=== PATIENT | female | born 1935 | race Caucasian/White ===

== ENCOUNTER → 2020-06-01 09:41 | Outpatient (BNVA) | payer MEDICARE, MEDICAID, SELFPAY | PROVIDERS: Family Provider Family Medicine; PCP Family Medicine; Visit Provider Family Medicine | DX: I10 Essential (primary) hypertension (principal); M54.5 Low back pain; E11.9 Type 2 diabetes mellitus without complications | CPT/HCPCS: 80053; 80061; 83036; 85025 ==

== ENCOUNTER → 2021-01-11 17:15 | Outpatient (BNVA) | payer MEDICARE, MEDICAID, SELFPAY | PROVIDERS: Family Provider Family Medicine; PCP Family Medicine; Visit Provider Family Medicine | DX: E11.9 Type 2 diabetes mellitus without complications (principal); M54.5 Low back pain; M10.9 Gout, unspecified; I10 Essential (primary) hypertension | CPT/HCPCS: 80053; 83036 ==

== ENCOUNTER → 2021-01-22 12:07 | Outpatient (BNVA) | payer MEDICARE, MEDICAID, SELFPAY | PROVIDERS: Family Provider Family Medicine; PCP Family Medicine; Referring Provider Family Medicine; Visit Provider Family Medicine | DX: I10 Essential (primary) hypertension (principal) | CPT/HCPCS: 80053 ==

== ENCOUNTER → 2021-08-03 15:08 | Outpatient (BNVA) | payer MEDICARE, MEDICAID, SELFPAY | PROVIDERS: Family Provider Family Medicine; PCP Family Medicine; Visit Provider Family Medicine | DX: I10 Essential (primary) hypertension; E11.9 Type 2 diabetes mellitus without complications; E78.5 Hyperlipidemia, unspecified; M17.11 Unilateral primary osteoarthritis, right knee; M1A.09X0 Idiopathic chronic gout, multiple sites, without tophus (tophi); I48.0 Paroxysmal atrial fibrillation; L82.1 Other seborrheic keratosis; E78.2 Mixed hyperlipidemia; L72.0 Epidermal cyst | CPT/HCPCS: 80053; 80061; 83036 ==

== ENCOUNTER → 2021-09-03 11:14 | Outpatient (BNVA) | payer MEDICARE, MEDICAID, SELFPAY | PROVIDERS: Family Provider Family Medicine; PCP Family Medicine; Visit Provider Nurse Practitioner Family | DX: M17.11 Unilateral primary osteoarthritis, right knee (principal); M76.41 Tibial collateral bursitis [Pellegrini-Stieda], right leg | CPT/HCPCS: 73562 ==

== ENCOUNTER → 2021-10-12 09:37 | Outpatient (BNVA) | payer MEDICARE, MEDICAID, SELFPAY | PROVIDERS: Family Provider Family Medicine; PCP Family Medicine; Visit Provider Nurse Practitioner Family | DX: M16.11 Unilateral primary osteoarthritis, right hip (principal) | CPT/HCPCS: 73502 ==

== ENCOUNTER 2021-10-21 13:04 | Emergency (ER) | payer MEDICARE, MEDICAID, SELFPAY ==
[2021-10-21 13:14] VITALS: BP 154/81; PULSE 64; RESP 18; TEMP 37.2; O2SAT 96; BMI 30.3
--- NOTE | 2021-10-21 13:30 | CTR_ITS ---
PROCEDURE INFORMATION: Exam: CT Lumbar Spine Without Contrast Exam date and time: 10/21/2021 1:46 PM Age: 86 years old Clinical indication: Low back pain; Patient HX: C/O worsening chronic low back/rle pain; Additional info: Worsening back pain TECHNIQUE: Imaging protocol: Computed tomography images of the lumbar spine without contrast. Radiation optimization: All CT scans at this facility use at least one of these dose optimization techniques: automated exposure control; mA and/or kV adjustment per patient size (includes targeted exams where dose is matched to clinical indication); or iterative reconstruction. COMPARISON: CR XR hip RT 2-3V wo/w pel* [id number] 10/12/2021 9:53 AM RADIATION DOSE METRICS: Total DLP (mGy-cm): 2343.27 FINDINGS: Vertebrae: Levoscoliosis. 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 Moderate to severe multilevel spine degenerative changes including degenerative disc disease, spondylosis and facet degenerative changes. Discs/Spinal canal/Neural foramina: Severe L3-L4, L4-L5 and L5-S1 central spinal stenosis. Soft tissues: Unremarkable. CT/CT lumbar spine wo con* [id number] IMPRESSION: 1. Levoscoliosis. 2. 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 3. Severe L3-L4, L4-L5 and L5-S1 central spinal stenosis. 4. Moderate to severe multilevel spine degenerative changes including degenerative disc disease, spondylosis and facet degenerative changes.
--- NOTE | 2021-10-21 13:31 | W.ED.EXTPRO ---
HPI - Extremity Problem General: Chief complaint: Extremity Problem,Nontraumatic Stated complaint: Right leg/hip pain Time Seen by Provider: 10/21/21 13:22 Source: patient Mode of arrival: ambulatory Limitations: no limitations History of Present Illness: 86-year-old female presents to the ER today for right sided hip and low back pain. Patient reports this is a chronic issue however has continued to worsen over the last 1 month. Patient denies any injury that made it worse. She reports she saw her primary care last week and had a bursitis injection. Patient reports since then the pain has worsened and not improved at all. Patient reports pain is more in the posterior buttock/hip region. Patient denies any pain radiating down her leg. Patient reports in the past she was told she had some degeneration in her low back. Patient reports she takes gabapentin with no improvement. Patient also takes tramadol. Patient reports she is unable to sleep due to the pain over the last week. Patient denies any numbness or tingling. Denies any loss of bowel or bladder control. Review of Systems General: Reports: 10 or more systems reviewed and unremarkable except in HPI and below PFSH ED PFSH: Medical History A-fib Bilateral chronic knee pain DDD (degenerative disc disease), lumbar Enrolled in chronic care management Gout Hyperlipidemia Hypertension Lumbar back pain Osteoporosis Restless leg syndrome Type 2 diabetes mellitus Surgical History H/O: hysterectomy S/P cholecystectomy S/P triple vessel bypass Family History Mother , uterine cancer Cancer CAD (coronary artery disease) Stroke Brother CAD (coronary artery disease) Daughter , lung cancer Cancer Sister Cancer breast and uterine cancer Social History Smoking and tobacco status: never smoked Alcohol intake: never Current occupational status: retired History of recent travel: No Current gender identity: Female Female Reproductive History: Para: 7 Spontaneous abortions: No Physical Exam Const: COMMON NORMALS: average body habitus, patient oriented x3, no limitations, healthy appearing and alert Neck/C-Spine: COMMON NORMALS: full ROM and no lymphadenopathy Resp: COMMON NORMALS: normal respiratory effort, No retractions and clear to auscultation bilaterally AUSCULTATION: clear to auscultation bilaterally Cardio: COMMON NORMALS: regular rate and regular rhythm RATE: regular rate RHYTHM: regular rhythm GI: COMMON NORMALS: Normal to inspection, nondistended, normoactive bowel sounds present, Soft to palpation and non-tender PALPATION: Yes Soft to palpation Back/Pelvis: OTHER: Patient has tenderness over the spinous processes of L3-5. Patient also has pain to palpation over the SI joint. No tenderness is noted over the right trochanteric bursa's. Extremity: OTHER: See back exam. No tenderness is noted over the right trochanteric bursa's at this time. Neuro: COMMON NORMALS: patient oriented x3 SENSORIUM/ORIENTATION: Yes alert Psych: COMMON NORMALS: mental status grossly normal, Normal thought process present, cooperative and normal affect THOUGHT PROCESS: Normal thought process present Skin: COMMON NORMALS: no rashes or lesions noted GENERAL SKIN EXAM: no rashes or lesions noted Course ED course: 86-year-old female presents to the ER today for right hip and low back pain is chronic but worsening. Patient had an injection of the right hip about 1 week ago for bursitis. Patient reports pain has worsened since that time. Patient reports pain is more so in the low back and buttock going down into her leg. She denies any loss of bowel or bladder control at this time. Patient is taking gabapentin and tramadol with minimal improvement. Patient reports she is unable to sleep at night due to the pain. Patient does not know when her last MRI of the low back was done. We will get a CT of the low back L-spine at this time. Discussed with patient that she may need to follow-up for MRI or discuss other options with her PCP. We will try to better manage her pain at this time. Vital Signs: Vital signs: Vital Signs Temperature 97.8 F 10/21/21 13:57 Pulse Rate 88 10/21/21 15:04 Respiratory Rate 16 10/21/21 15:04 Blood Pressure 144/56 10/21/21 15:04 Pulse Oximetry 96 10/21/21 15:04 MDM - Extremity (Nontraumatic) Medical Decision Making 86-year-old female presents to the ER today for right hip and low back pain is chronic but worsening. Patient had an injection of the right hip about 1 week ago for bursitis. Patient reports pain has worsened since that time. Patient reports pain is more so in the low back and buttock going down into her leg. She denies any loss of bowel or bladder control at this time. Patient is taking gabapentin and tramadol with minimal improvement. Patient reports she is unable to sleep at night due to the pain. She denies any neurological deficits. Patient does not know when her last MRI of the low back was done. CT of the L-spine done in the ER indicates some spinal stenosis of the lower lumbar region in addition to some significant spurring and degenerative changes noted. I discussed findings with patient. I recommend she follow-up with her PCP for additional imaging and to discuss treatment plan. At this time we will try a steroid pack and patient can continue her home pain medication and gabapentin. We will avoid any muscle relaxers or medications that would make patient drowsy given her age and fall risk. Patient should follow-up with PCP this week. Return to the ER with new or worsening symptoms. Patient verbalized understanding and is in agreement with the treatment plan. Lab Data Radiology Impressions Lumbar Spine CT 10/21/21 13:30 IMPRESSION: 1. Levoscoliosis. 2. 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 3. Severe L3-L4, L4-L5 and L5-S1 central spinal stenosis. 4. Moderate to severe multilevel spine degenerative changes including degenerative disc disease, spondylosis and facet degenerative changes. Critical Care Time Critical Care Time: Critical Care Time: No Discharge Plan Discharge Patient Disposition: Home Clinical Impression: Acute exacerbation of chronic low back pain Condition: Stable Prescriptions: New Medrol (Cam) 4 mg tablets,dose pack See Rx Instructions .ROUTE .COMPLEX Qty: 21 0RF Rx Instructions: orally per package directions No Action Eliquis 5 mg tablet 5 mg PO BID 0RF amiodarone 200 mg tablet 200 mg PO DAILY 0RF allopurinol 300 mg tablet See Rx Instructions .ROUTE .COMPLEX 90 Days Qty: 45 1RF Dose Instruction: TAKE 1/2 TABLET (150MG) BY MOUTH DAILY Rx Instructions: TAKE 1/2 TABLET (150MG) BY MOUTH DAILY carvedilol 6.25 mg tablet 6.25 mg PO BID 90 Days Qty: 180 1RF gabapentin 400 mg capsule 400 mg PO TID 30 Days Qty: 90 5RF glipizide 5 mg tablet extended release 24hr See Rx Instructions .ROUTE .COMPLEX Qty: 90 1RF Dose Instruction: TAKE 1 TABLET BY MOUTH DAILY Rx Instructions: TAKE 1 TABLET BY MOUTH DAILY lovastatin 20 mg tablet See Rx Instructions .ROUTE .COMPLEX 90 Days Qty: 90 1RF Dose Instruction: TAKE 1 TABLET BY MOUTH DAILY Rx Instructions: TAKE 1 TABLET BY MOUTH DAILY meloxicam 15 mg tablet See Rx Instructions .ROUTE .COMPLEX Qty: 90 1RF Dose Instruction: TAKE 1 TABLET BY MOUTH DAILY WITH FOOD Rx Instructions: TAKE 1 TABLET BY MOUTH DAILY WITH FOOD aspirin [Adult Aspirin Regimen] 81 mg tablet,delayed release (DR/EC) 81 mg PO DAILY 0RF folic acid 800 mcg tablet 0.8 mg PO DAILY 0RF vitamin B complex [B Complex-Vitamin B12] Tablet 1 tab PO DAILY 0RF omega-3 fatty acids [Fish Oil Concentrate] 1,000 mg capsule 1,000 mg PO BID 0RF Entresto 24-26 mg tablet 1 tab PO BID 0RF tramadol 50 mg tablet 50 mg PO BID PRN (Reason: pain) 7 Days Qty: 14 0RF Discharge Orders: Discharge ED (Routine); Ordered 10/21/21 Ordered By: Pily Coles Referrals: Denise Parnell MD [Primary Care Provider] - Discharge Diet: Usual diet Discharge Activity: Resume usual activity Patient Instructions: Opioid Safety Activity Restrictions/Additional Instructions: Take Medrol Dosepak as discussed. Continue home medications and speak with PCP regarding increasing nose for pain. Follow-up with PCP in 5 to 7 days to discuss further imaging versus referral. Return to the ER with any new or worsening symptoms. Coding Level of Care Code ED Business Intelligence Engineer for Katlin Fwric Exam Detailed
[2021-10-21 13:57] VITALS: BP 144/56; PULSE 66; RESP 16; TEMP 36.6; O2SAT 97
[2021-10-21 15:04] VITALS: BP 144/56; PULSE 88; RESP 16; O2SAT 96
== END 2021-10-21 15:09 | disposition home or self-care (01) ==
PROVIDERS: Emergency Provider Physician Assistant; PCP Family Medicine
DX: G89.29 Other chronic pain (principal); M54.50 Low back pain, unspecified; M48.061 Spinal stenosis, lumbar region without neurogenic claudication
CPT/HCPCS: 72131; 99282

== ENCOUNTER → 2022-01-10 10:47 | Outpatient (BNVA) | payer MEDICARE, MEDICAID, SELFPAY | PROVIDERS: PCP Family Medicine; Visit Provider Emergency Medicine | DX: E11.40 Type 2 diabetes mellitus with diabetic neuropathy, unspecified (principal) | CPT/HCPCS: 82962; 83036 ==

== ENCOUNTER → 2022-03-19 09:15 | Outpatient (BNVA) | payer MEDICARE, MEDICAID, SELFPAY | PROVIDERS: PCP Family Medicine; Visit Provider Family Medicine | DX: I10 Essential (primary) hypertension (principal); E11.9 Type 2 diabetes mellitus without complications; M10.9 Gout, unspecified | CPT/HCPCS: 80053; 83036 ==

== ENCOUNTER → 2022-08-27 08:55 | Outpatient (BNVA) | payer MEDICARE, MEDICAID, SELFPAY | PROVIDERS: PCP Family Medicine; Visit Provider Family Medicine | DX: I10 Essential (primary) hypertension (principal); E78.2 Mixed hyperlipidemia; E11.9 Type 2 diabetes mellitus without complications | CPT/HCPCS: 80053; 80061; 83036 ==

== ENCOUNTER → 2023-04-12 13:41 | Outpatient (BNVA) | payer MEDICARE, MEDICAID, SELFPAY | PROVIDERS: PCP Family Medicine; Visit Provider Nurse Practitioner Family | DX: Z20.822 Contact with and (suspected) exposure to COVID-19 (principal); U07.1 COVID-19 | CPT/HCPCS: 87426 ==

== ENCOUNTER → 2023-05-13 09:09 | Outpatient (BNVA) | payer MEDICARE, MEDICAID, SELFPAY | PROVIDERS: PCP Family Medicine; Visit Provider Family Medicine | DX: E04.9 Nontoxic goiter, unspecified (principal); I10 Essential (primary) hypertension; E11.40 Type 2 diabetes mellitus with diabetic neuropathy, unspecified; E11.9 Type 2 diabetes mellitus without complications; E78.5 Hyperlipidemia, unspecified; M10.9 Gout, unspecified; Z23 Encounter for immunization; R53.1 Weakness; M16.11 Unilateral primary osteoarthritis, right hip; Z74.09 Other reduced mobility; Z78.9 Other specified health status; R54 Age-related physical debility; R00.1 Bradycardia, unspecified; I48.0 Paroxysmal atrial fibrillation; E11.42 Type 2 diabetes mellitus with diabetic polyneuropathy; M1A.09X0 Idiopathic chronic gout, multiple sites, without tophus (tophi); E78.2 Mixed hyperlipidemia | CPT/HCPCS: 80053; 80061; 83036; 84439; 84443; 84481; 84550; 85025 ==

== ENCOUNTER → 2023-08-12 11:09 | Outpatient (BNVA) | payer MEDICARE, MEDICAID, SELFPAY | PROVIDERS: PCP Family Medicine; Referring Provider Family Medicine; Visit Provider Family Medicine | DX: N39.0 Urinary tract infection, site not specified (principal) | CPT/HCPCS: 81000 ==

== ENCOUNTER → 2024-01-26 12:41 | Outpatient (BNVA) | payer MEDICARE, MEDICAID, SELFPAY | PROVIDERS: PCP Family Medicine; Visit Provider Family Medicine | DX: E11.9 Type 2 diabetes mellitus without complications (principal); I10 Essential (primary) hypertension | CPT/HCPCS: 80048; 83036; 83880 ==

== ENCOUNTER → 2024-04-29 09:27 | Outpatient (BNVA) | payer MEDICARE, MEDICAID, SELFPAY | PROVIDERS: PCP Family Medicine; Visit Provider Nurse Practitioner | DX: S90.31XA Contusion of right foot, initial encounter (principal); X58.XXXA Exposure to other specified factors, initial encounter; M19.90 Unspecified osteoarthritis, unspecified site; M19.071 Primary osteoarthritis, right ankle and foot | CPT/HCPCS: 73630 ==

== ENCOUNTER → 2024-09-13 09:06 | Outpatient (BNVA) | payer MEDICARE, MEDICAID, SELFPAY | PROVIDERS: PCP Family Medicine; Visit Provider Family Medicine | DX: E11.9 Type 2 diabetes mellitus without complications (principal); E04.9 Nontoxic goiter, unspecified; I50.9 Heart failure, unspecified; E78.2 Mixed hyperlipidemia | CPT/HCPCS: 80053; 80061; 83036; 83880; 84439; 84443; 84481; 85025 ==

== ENCOUNTER 2024-12-29 12:43 | Inpatient (IN) | payer MEDICARE, MEDICAID, SELFPAY ==
[2024-12-29] VITALS (17 sets, daily range): BP systolic 82–107; BP diastolic 44–66; PULSE 78–94; RESP 15–22; TEMP 36.4–36.8; O2SAT 90–100; BMI 27.1
--- NOTE | 2024-12-29 12:58 | XR_ITS ---
WS: [id number] Portable AP upright chest, 12/29/2024 Clinical Data: fall Comparison: None. Findings: No nodules or masses are seen. The heart is enlarged. There is a moderate right pleural effusion. The pulmonary vascularity is not increased. No pneumonia or pneumothorax is seen. Midline sternotomy sutures are present. The aortic arch shows calcification. There are probable mariah calcifications in the right axilla. Monitor leads are on the chest wall. XR/XR chest 1V portable [id number] Impression: 1. Cardiomegaly and moderate right pleural effusion. 2. Atherosclerosis.
--- NOTE | 2024-12-29 12:58 | XR_ITS ---
WS: [email or web address] Right shoulder, 3 views, 12/29/2024 Clinical Data: fall Comparison: None. Findings: No fractures or dislocations are seen. There is osteoarthritis of the right AC joint with narrowing, sclerosis and bony overgrowth. There is severe osteoarthritis of the right glenohumeral joint with abundant calcifications over the humeral head and within the glenoid fossa. The adjacent right clavicle, right scapula and ribs are normal. The soft tissues are unremarkable. There are node calcifications in the right axilla. There is a patchy opacity in the right lower lobe. XR/XR shoulder RT min 2V* [id number] Impression: 1. Negative for fracture or dislocation. 2. 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
--- NOTE | 2024-12-29 12:58 | XR_ITS ---
WS: [email or web address] Right hip, 2 views, AP pelvis, 12/29/2024 Clinical Data: fall Comparison: Right hip, 10/12/2021 Findings: No fractures or dislocations are seen. The right hip shows severe osteoarthritis with narrowing, sclerosis, cyst formation, and erosion of the acetabular fossa and head of the right femur. The left hip shows moderate osteoarthritis. The soft tissues are not remarkable. The adjacent pelvis is normal. There is vascular calcification. There is a fecal impaction. Monitor leads are on the abdominal wall. There is osteoarthritis of the lower lumbar vertebral bodies. XR/XR hip RT 2-3V wo/w pel* [id number] Impression: 1. Negative for right hip fracture. 2. Severe osteoarthritis of the right hip. 3. Moderate osteoarthritis of the left hip.
--- NOTE | 2024-12-29 12:59 | W.ED.EXTPRO ---
HPI - Extremity Problem General: Chief complaint: Extremity Injury, Lower Stated complaint: FALL , RIGHT HIP PAIN, LOW BP Time Seen by Provider: 12/29/24 12:52 History of Present Illness: 89-year-old female presents following a mechanical fall. Patient reports that she was reaching into get a frozen microwave dinner lost her balance and fell. Patient complains of right hip pain. Patient received a liter bolus and route via EMS. She also complains of some right shoulder pain. Associated symptoms: Deny chest pain or fever(s) Related Data Home Medications ?Medication ?Instructions ?Recorded ?Confirmed aspirin 81 mg tablet,delayed 81 mg PO DAILY 12/06/19 12/29/24 release (Adult Aspirin Regimen) omega-3 fatty acids 1,000 mg 1,000 mg PO BID 12/06/19 09/13/24 capsule (Fish Oil Concentrate) vitamin B complex (B 1 tab PO DAILY 12/06/19 09/13/24 Complex-Vitamin B12 tablet) sacubitril 24 mg-valsartan 26 mg 1 tab PO BID 01/21/20 09/13/24 tablet (Entresto) apixaban 5 mg tablet (Eliquis) 5 mg PO BID 07/02/20 12/29/24 amiodarone 200 mg tablet 200 mg PO DAILY 07/10/20 12/29/24 nitroglycerin 0.4 mg sublingual 0.4 mg sublingual Q5M PRN 02/07/23 09/13/24 tablet (Nitrostat) atorvastatin 20 mg tablet 20 mg PO DAILY 12/29/24 12/29/24 carvedilol 6.25 mg tablet 6.25 mg PO BID 12/29/24 12/29/24 gabapentin 800 mg tablet See Rx Instructions .Route .COMPLEX 12/29/24 12/29/24 glipizide 2.5 mg tablet, extended 2.5 mg PO DAILY 12/29/24 12/29/24 release 24 hr lovastatin 20 mg tablet 20 mg PO DAILY 12/29/24 12/29/24 meloxicam 15 mg tablet 15 mg PO DAILY 12/29/24 12/29/24 Previous Rx's ?Medication ?Instructions ?Recorded miscellaneous medical supply 1 ea miscellaneous ONCE #1 ea 04/10/22 miscellaneous medical supply See Rx Instructions miscellaneous 09/08/23 .COMPLEX #1 ea inhalational spacing device #1 ea 09/29/23 (BreatheRite Valved MDI Chamber spacer) blood sugar diagnostic (Blood #200 ea 03/18/24 Glucose Test strips) blood-glucose meter #1 ea 03/18/24 lancets #200 ea 03/18/24 diaper,brief,adult,disposable #240 ea 05/04/24 (Depend Underwear For Women Small-Medium) albuterol sulfate 90 mcg/actuation See Rx Instructions .Route 06/21/24 aerosol inhaler (Ventolin HFA) .COMPLEX #18 grams furosemide 20 mg tablet 20 mg PO DAILY for extra fluid on 09/13/24 body 90 days #90 tabs miscellaneous medical supply See Rx Instructions miscellaneous 09/13/24 .COMPLEX #2 ea potassium chloride 8 mEq 8 meq PO DAILY 90 days #90 caps 09/13/24 capsule,extended release Allergies Allergy/AdvReac Type Severity Reaction Status Date / Time metformin Allergy diarrhea Verified 09/13/24 08:30 Penicillins Allergy hives Verified 09/13/24 08:30 Review of Systems Const: Denies: fever(s) or chills Card: Denies: chest pain or palpitations Resp: Denies: dyspnea or productive cough Musc: Reports: other (Please see HPI) PFSH ED PFSH: Medical History Pressure ulcer Weakness A-fib Enrolled in chronic care management Osteoporosis Restless leg syndrome Hyperlipidemia DDD (degenerative disc disease), lumbar Bilateral chronic knee pain Lumbar back pain Gout Type 2 diabetes mellitus Hypertension Surgical History S/P triple vessel bypass S/P cholecystectomy H/O: hysterectomy Family History Mother , uterine cancer Cancer CAD (coronary artery disease) Stroke Brother CAD (coronary artery disease) Daughter , lung cancer Cancer Sister Cancer breast and uterine cancer Social History Smoking and tobacco/nicotine status: never used tobacco/nicotine Alcohol intake: never Substance/Drug Use: never Current occupational status: retired Do you think of yourself as: Straight/Heterosexual Current gender identity: Female Female Reproductive History: Para: 7 Spontaneous abortions: No Physical Exam Const: COMMON NORMALS: no acute distress, patient oriented x3 and alert Resp: COMMON NORMALS: normal respiratory effort and clear to auscultation bilaterally AUSCULTATION: clear to auscultation bilaterally Cardio: COMMON NORMALS: regular rate and regular rhythm RATE: regular rate RHYTHM: regular rhythm Extremity: NARRATIVE EXTREMITY EXAM: Mild tenderness right hip with some mild shortening and external rotation of the right lower leg, mild tenderness right shoulder Neuro: COMMON NORMALS: patient oriented x3 SENSORIUM/ORIENTATION: Yes alert Course Vital Signs: Vital signs: Vital Signs Pulse Rate 78 12/29/24 13:37 Respiratory Rate 16 12/29/24 13:37 Blood Pressure 100/48 12/29/24 13:37 Pulse Oximetry 95 12/29/24 12:55 MDM - Extremity (Nontraumatic) Medical Decision Making Patient's diagnostic studies were ordered reviewed and show significant anemia hemoglobin of 5.3. Patient does admit to having chronic black stool and she is on Eliquis. She reports has been having black stool for at least a year and increasing weakness over the last few months. Patient's x-ray showed no acute findings. Patient to be admitted for further evaluation and blood transfusion to Dr. Dillon. Patient was stable upon admission. Lab Data 12/29/24 13:06 12/29/24 13:06 Radiology Impressions Chest X-Ray 12/29/24 12:58 Impression: 1. Cardiomegaly and moderate right pleural effusion. 2. Atherosclerosis. Hip/Pelvis X-Ray 12/29/24 12:58 Impression: 1. Negative for right hip fracture. 2. Severe osteoarthritis of the right hip. 3. Moderate osteoarthritis of the left hip. Shoulder X-Ray 12/29/24 12:58 Impression: 1. Negative for fracture or dislocation. 2. 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 Laboratory Results WBC 4.04 10^3/uL (3.29-11.43) 12/29/24 13:06 RBC 2.03 10^6/uL (3.85-5.65) L 12/29/24 13:06 Hgb 5.30 g/dL (11.27-16.99) L* 12/29/24 13:06 Hct 17.7 % (36-47) L* 12/29/24 13:06 MCV 87.2 fl (85-98) 12/29/24 13:06 MCH 26.1 pg (27-33) L 12/29/24 13:06 MCHC 29.9 g/dL (30-55) L 12/29/24 13:06 RDW 21.2 % (12.1-15.1) H 12/29/24 13:06 Plt Count 286 10^3/cmm (157-399) 12/29/24 13:06 MPV 8.9 fL (7.4-10.4) 12/29/24 13:06 Neut % (Auto) 67.6 % 12/29/24 13:06 Lymph % (Auto) 16.1 % 12/29/24 13:06 [place] % (Auto) 11.4 % 12/29/24 13:06 Eos % (Auto) 3.7 % 12/29/24 13:06 Baso % (Auto) 0.5 % 12/29/24 13:06 Neut # (Auto) 2.73 10^3/uL (1.8-7.7) 12/29/24 13:06 Lymph # (Auto) 0.7 10^3/uL (0.8-4.8) L 12/29/24 13:06 [place] # (Auto) 0.5 10^3/uL (0.2-0.9) 12/29/24 13:06 Eos # (Auto) 0.2 10^3/uL (0.0-0.8) 12/29/24 13:06 Baso # (Auto) 0.0 10^3/uL (0.0-0.1) 12/29/24 13:06 Nucleated RBC % (auto) 0 % 12/29/24 13:06 Nucleated RBCs # 0.0 /100WBC 12/29/24 13:06 Sodium 136 mmol/L (136-145) 12/29/24 13:06 Potassium 5.3 mmol/L (3.5-5.1) H 12/29/24 13:06 Chloride 101 mmol/L (98-107) 12/29/24 13:06 Carbon Dioxide 26 mmol/L (22-29) 12/29/24 13:06 Anion Gap 14.3 (5-19) 12/29/24 13:06 BUN 57 mg/dL (8-23) H 12/29/24 13:06 Creatinine 1.7 mg/dL (0.5-0.9) H 12/29/24 13:06 GFR Calculation Not Reportable 12/29/24 13:06 Glucose 109 mg/dL (65-115) 12/29/24 13:06 Calculated Osmolality 298 mOsm/kg (285-295) H 12/29/24 13:06 Calcium 8.1 mg/dL (8.5-10.5) L 12/29/24 13:06 Total Bilirubin 0.7 mg/dL (0.15-1.2) 12/29/24 13:06 AST 8 U/L (0-32) 12/29/24 13:06 ALT 9 U/L (0-33) 12/29/24 13:06 Alkaline Phosphatase 93 U/L (35-105) 12/29/24 13:06 Troponin T Baseline 29 ng/L (0-10) H 12/29/24 13:06 Total Protein 5.7 g/dL (6.6-8.7) L 12/29/24 13:06 Albumin 3.3 g/dL (3.5-5.2) L 12/29/24 13:06 Globulin 2.4 g/dL (1.3-4.6) 12/29/24 13:06 Amorphous Sediment Not Reportable 12/29/24 13:26 All radiology interpretation(s) finalized by discharge Discharge Plan Discharge Patient Disposition: Admitted As Inpatient Clinical Impression: Anemia, Weakness generalized, Fall Condition: Stable Coding Level of Care Code ED Warp Dresser for Katlin Mace
--- NOTE | 2024-12-29 13:05 | ECG_ITS ---
[employer] [facility] Test Date: 2024-12-29 Pat Name: Lorie Velásquez Department: Room: Gender: Female [employer] Etl Developer: : 1935 Requested By: Aleksandr Rowan Order Number: [id number] Elsie MD: Alana Dave M.D. Measurements Intervals [place] Rate: 83 P: 0 OR: 0 QRS: -16 QRSD: 101 T: 190 QT: 375 QTc: 441 Interpretive Statements ATRIAL FIBRILLATION LOW QRS VOLTAGE [QRS DEFLECTION < 0.5/1.0 mV IN LIMB/CHEST LEADS] PATTERN CONSISTENT WITH PULMONARY DISEASE SEPTAL MYOCARDIAL INFARCTION , PROBABLY OLD [40+ ms Q WAVE IN V1/V2] No previous ECG available for comparison Electronically Signed On 12-29-2024 21:41:33 CDT by Alana Dave M.D. [email or web address]
[2024-12-29 13:12] LABS: Basophils % 0.5 %; Eosinophils # 0.2 10^3/uL (0.0-0.8); Eosinophils % 3.7 %; Lymphocytes # 0.7 10^3/uL (0.8-4.8); Lymphocytes % 16.1 %; Mean Corpuscular HGB Conc 29.9 g/dL (30-55); Mean Corpuscular Hemoglobin 26.1 pg (27-33); Mean Corpuscular Volume 87.2 fl (85-98); Mean Platelet Volume 8.9 fL (7.4-10.4); Monocytes # 0.5 10^3/uL (0.2-0.9); Monocytes % 11.4 %; Neutrophils # 2.73 10^3/uL (1.8-7.7); Neutrophils % 67.6 %; Nucleated Red Blood Cells % 0 %; Platelet Count 286 10^3/cmm (157-399); Red Blood Count 2.03 10^6/uL (3.85-5.65); Red Cell Distribution Width 21.2 % (12.1-15.1); White Blood Count 4.04 10^3/uL (3.29-11.43)
[2024-12-29 13:27] LABS: Hematocrit 17.7 % (36-47)
[2024-12-29 13:28] LABS: Alanine Aminotransferase 9 U/L (0-33); Albumin Level 3.3 g/dL (3.5-5.2); Alkaline Phosphatase 93 U/L (35-105); Anion Gap 14.3 (5-19); Aspartate Amino Transferase 8 U/L (0-32); Blood Urea Nitrogen 57 mg/dL (8-23); Calcium 8.1 mg/dL (8.5-10.5); Carbon Dioxide 26 mmol/L (22-29); Chloride 101 mmol/L (98-107); Creatinine Clr Calc Pharmacy 23.3968; Globulin 2.4 g/dL (1.3-4.6); Glucose 109 mg/dL (65-115); Osmolality Calculated 298 mOsm/kg (285-295); Potassium 5.3 mmol/L (3.5-5.1); Sodium 136 mmol/L (136-145); Total Bilirubin 0.7 mg/dL (0.15-1.2); Total Protein 5.7 g/dL (6.6-8.7)
[2024-12-29 13:30] LABS: Troponin(5th) Baseline 29 ng/L (0-10)
--- NOTE | 2024-12-29 14:35 | PM.HP ---
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 No h/o head strike. She has been c/o generalized weakness over several months , however did not think she passed out today. Hb was incidentally noted to be at ~5, previously at ~9 from 08/2024. She had a BM in the ER which was melanotic, patient states that she has been having black tarry bowel movements for at least 9-10 months but did not know that this was abnormal. She is on Eliquis chronically for A fib. No fever. no other complaints today. Denies nausea, vomiting or abdominal pain, She had a colonoscopy remotely. No known h/o cancer. Review of Systems General: Reports: 10 or more systems reviewed and unremarkable except in HPI and below Const: Denies: fever(s), chills or body aches Eyes: Denies: change in vision, blurry vision or photophobia ENMT: Reports: hoarseness; Denies: throat pain, enlarged tonsils, odynophagia or nasal congestion Card: Denies: chest pain, palpitations, irregular heart rhythm, edema, swelling of feet/ankles, lightheadedness, pre-syncope, dyspnea on exertion or orthopnea Resp: Denies: dyspnea, productive cough, non-productive cough, wheezing, stridor, pain on inspiration, change in phlegm color, hemoptysis or chest congestion GI: Denies: abdominal pain, nausea, vomiting, hematemesis, coffee ground emesis, dysphagia, heartburn, diarrhea, constipation, GI cramping, change in stool character, hematochezia or melena : Denies: flank pain, difficulty voiding, dysuria, urinary frequency, urinary urgency, urinary hesitancy or hematuria Musc: Denies: neck pain, back pain, extremity pain, joint swelling, joint warmth or deformity Neuro: Denies: headache(s), numbness in extremities, weakness in extremities, sensory changes, difficulty walking, frequent falls, dizziness, vertigo, behavioral changes, Slurred speech present or seizure-like activity Psych: Denies: anxiety, depression, suicidal ideation or homicidal ideation Endo: Denies: polyuria, polydipsia, tired all the time, cold intolerance or hot flashes Antelmo/Lymph: Denies: easy bruising or easy bleeding Medications/Allergies Home Medications ?Medication ?Instructions ?Recorded ?Confirmed ?Last Taken ?Type aspirin 81 mg tablet,delayed 81 mg PO DAILY 12/06/19 12/29/24 12/29/24 History release (Adult Aspirin Regimen) sacubitril 24 mg-valsartan 26 mg 1 tab PO BID 01/21/20 12/29/24 12/29/24 History tablet (Entresto) apixaban 5 mg tablet (Eliquis) 5 mg PO BID 07/02/20 12/29/24 12/29/24 History amiodarone 200 mg tablet 200 mg PO DAILY 07/10/20 12/29/24 12/29/24 History nitroglycerin 0.4 mg sublingual 0.4 mg sublingual Q5M PRN Chest 02/07/23 12/29/24 Unknown History tablet (Nitrostat) Pain inhalational spacing device #1 ea 09/29/23 12/29/24 Unknown Rx (BreatheRite Valved MDI Chamber spacer) blood sugar diagnostic (Blood #200 ea 03/18/24 12/29/24 Unknown Rx Glucose Test strips) blood-glucose meter #1 ea 03/18/24 12/29/24 Unknown Rx lancets #200 ea 03/18/24 12/29/24 Unknown Rx diaper,brief,adult,disposable #240 ea 05/04/24 12/29/24 Unknown Rx (Depend Underwear For Women Small-Medium) albuterol sulfate 90 mcg/actuation See Rx Instructions .Route 06/21/24 12/29/24 Unknown Rx aerosol inhaler (Ventolin HFA) .COMPLEX #18 grams furosemide 20 mg tablet 20 mg PO DAILY for extra fluid on 09/13/24 12/29/24 12/29/24 Rx body 90 days #90 tabs atorvastatin 20 mg tablet 20 mg PO DAILY 12/29/24 12/29/24 12/29/24 History carvedilol 6.25 mg tablet 6.25 mg PO BID 12/29/24 12/29/24 12/29/24 History gabapentin 800 mg tablet See Rx Instructions .Route .COMPLEX 12/29/24 12/29/24 12/29/24 History glipizide 2.5 mg tablet, extended 2.5 mg PO DAILY 12/29/24 12/29/24 12/29/24 History release 24 hr lovastatin 20 mg tablet 20 mg PO DAILY 12/29/24 12/29/24 12/29/24 History meloxicam 15 mg tablet 15 mg PO DAILY 12/29/24 12/29/24 12/29/24 History omega 5-ywa-wyz-fish oil 300 1 cap PO DAILY 12/29/24 12/29/24 12/29/24 History mg-1,000 mg capsule (Fish Oil) potassium chloride 10 mEq 20 meq PO BID 12/29/24 12/29/24 12/29/24 History capsule,extended release vitamin B complex 1 tab PO DAILY 12/29/24 12/29/24 12/29/24 History Allergies Allergy/AdvReac Type Severity Reaction Status Date / Time metformin Allergy diarrhea Verified 09/13/24 08:30 Penicillins Allergy hives Verified 09/13/24 08:30 PFSH Acute PFSH: Medical History Pressure ulcer Weakness A-fib Enrolled in chronic care management Osteoporosis Restless leg syndrome Hyperlipidemia DDD (degenerative disc disease), lumbar Bilateral chronic knee pain Lumbar back pain Gout Type 2 diabetes mellitus Hypertension Surgical History S/P triple vessel bypass S/P cholecystectomy H/O: hysterectomy Family History Mother , uterine cancer Cancer CAD (coronary artery disease) Stroke Brother CAD (coronary artery disease) Daughter , lung cancer Cancer Sister Cancer breast and uterine cancer Social History Smoking and tobacco/nicotine status: never used tobacco/nicotine Alcohol intake: never Substance/Drug Use: never Current occupational status: retired Do you think of yourself as: Straight/Heterosexual Current gender identity: Female Female Reproductive History: Para: 7 Spontaneous abortions: No Vitals/I&O/Wt Last Vital Signs Pulse 78 12/29/24 13:37 Resp 16 12/29/24 13:37 BP 95/49 12/29/24 14:26 Pulse Ox 95 12/29/24 12:55 12/28/24 12/29/24 12/29/24 22:59 06:59 14:59 Intake Total 1000 / 1000 Balance 1000 / 1000 Weight last 48 hrs Weight 76.204 kg Physical Exam Narrative: General: No acute distress, AO x3 HEENT: PERRLA, pupils bilaterally equal and reactive, pallors not present Chest: Normal vesicular breath sounds, no added sounds, equal good air entry bilaterally CVS: S1-S2 regular, no murmurs, no tachycardia, no gallops, no rubs Abdomen: Soft, nontender, no organomegaly, bowel sounds present Neuro: No focal deficits, no facial deformity, AO x3, power 5/5 in all limbs Data 12/29/24 13:06 12/29/24 13:06 A&P Assessment and plan (1) GI bleed: Patient presenting with Anemia with Hb 5.3 today with melanotic bowel movements Suspect UGI bleed to be the source Eliquis to be on hold Protonix 80mg ivp now followed by 40mg iv BID surgery consult for endoscopy (2) Anemia: Hb 5.3 today Likely related to chronic blood loss Transfuse 2PRBC today Recheck H&H post transfusion (3) LISA (acute kidney injury): cr at 1.7 likely related to blood loss start NS @ 50 cc/ hr careful hydration due to known CHF (4) A-fib: currently rate controlled holding Eliquis Hold beta blockers given hypotension 82 systolic on arrival, currently BP improved 100 systolic after fluid bolus Plan DVT ppx: Scds only, no a/c due to GI bleed Full code PDMP PDMP Reviewed: Not Reviewed Attestations Medical Necessity Statement*: > 2 midnight stay is anticipated Coding Level of Care Code Acute Code for Chg Fwd Diagnoses GI bleed K92.2 Anemia D64.9 LISA (acute kidney injury) N17.9 Paroxysmal atrial fibrillation I48.0 Atrial fibrillation type: paroxysmal
[2024-12-29 14:43] LABS: Bilirubin Urine Negative (Negative); Blood Urine 3+ (Negative); Glucose Urine UA Negative (Normal); Ketones Urine Negative (Negative); Leukocyte Esterase Urine 1+ (Negative); Nitrate Urine Negative (Negative); Protein Urine Negative (Negative); Specific Gravity, Urine 1.008 (1.005-1.030); Urine Appearance Clear (CLEAR); Urine Color Yellow (Yellow)
[2024-12-29 14:48] LABS: Add Urine Microscopic? YES; Bacteria Urine 4+ /hpf; Hyaline Casts Urine 2.05 /lpf; Squamous Epithelial Cell Urine 0-5 /hpf (0-5)
[2024-12-29] MEDS: nitrofurantoin SR (BID) 100 mg Capsule PO (14:55)
[2024-12-29] MEDS: pantoprazole 40 mg SDV 80 MG IVP (14:55)
[2024-12-29 15:07] LABS: UA Slide Review UA Slide Review Perf
[2024-12-29 15:08] LABS: Amorphous Sediment Urine 1+ /hpf
[2024-12-29 15:09] LABS: Add Urine Culture? Yes
--- NOTE | 2024-12-29 19:40 | PM.CONSULT ---
Providers/Reason For Consult Consulting Physician/Specialty*: Dr. Hoskins general surgery Reason for Consult*: GI bleed Attending Physician: Marianne Dillon MD Primary Care Provider: Denise Parnell MD History of Present Illness History of Present Illness Lorie Velásquez is a 89 year old female whom surgery was consulted for melanotic stools. Patient is on Eliquis for A-fib. No prior scopes. Patient takes NSAIDs. No smoking. No PPI. Medications/Allergies Home Medications ?Medication ?Instructions ?Recorded ?Confirmed ?Last Taken ?Type aspirin 81 mg tablet,delayed 81 mg PO DAILY 12/06/19 12/29/24 12/29/24 History release (Adult Aspirin Regimen) sacubitril 24 mg-valsartan 26 mg 1 tab PO BID 01/21/20 12/29/24 12/29/24 History tablet (Entresto) apixaban 5 mg tablet (Eliquis) 5 mg PO BID 07/02/20 12/29/24 12/29/24 History amiodarone 200 mg tablet 200 mg PO DAILY 07/10/20 12/29/24 12/29/24 History nitroglycerin 0.4 mg sublingual 0.4 mg sublingual Q5M PRN Chest 02/07/23 12/29/24 Unknown History tablet (Nitrostat) Pain inhalational spacing device #1 ea 09/29/23 12/29/24 Unknown Rx (BreatheRite Valved MDI Chamber spacer) blood sugar diagnostic (Blood #200 ea 03/18/24 12/29/24 Unknown Rx Glucose Test strips) blood-glucose meter #1 ea 03/18/24 12/29/24 Unknown Rx lancets #200 ea 03/18/24 12/29/24 Unknown Rx diaper,brief,adult,disposable #240 ea 05/04/24 12/29/24 Unknown Rx (Depend Underwear For Women Small-Medium) albuterol sulfate 90 mcg/actuation See Rx Instructions .Route 06/21/24 12/29/24 Unknown Rx aerosol inhaler (Ventolin HFA) .COMPLEX #18 grams furosemide 20 mg tablet 20 mg PO DAILY for extra fluid on 09/13/24 12/29/24 12/29/24 Rx body 90 days #90 tabs atorvastatin 20 mg tablet 20 mg PO DAILY 12/29/24 12/29/24 12/29/24 History carvedilol 6.25 mg tablet 6.25 mg PO BID 12/29/24 12/29/24 12/29/24 History gabapentin 800 mg tablet See Rx Instructions .Route .COMPLEX 12/29/24 12/29/24 12/29/24 History glipizide 2.5 mg tablet, extended 2.5 mg PO DAILY 12/29/24 12/29/24 12/29/24 History release 24 hr lovastatin 20 mg tablet 20 mg PO DAILY 12/29/24 12/29/24 12/29/24 History meloxicam 15 mg tablet 15 mg PO DAILY 12/29/24 12/29/24 12/29/24 History omega 9-doe-lyw-fish oil 300 1 cap PO DAILY 12/29/24 12/29/24 12/29/24 History mg-1,000 mg capsule (Fish Oil) potassium chloride 10 mEq 20 meq PO BID 12/29/24 12/29/24 12/29/24 History capsule,extended release vitamin B complex 1 tab PO DAILY 12/29/24 12/29/24 12/29/24 History Allergies Allergy/AdvReac Type Severity Reaction Status Date / Time metformin Allergy diarrhea Verified 09/13/24 08:30 Penicillins Allergy hives Verified 09/13/24 08:30 PFSH Acute PFSH: Medical History Pressure ulcer Weakness A-fib Enrolled in chronic care management Osteoporosis Restless leg syndrome Hyperlipidemia DDD (degenerative disc disease), lumbar Bilateral chronic knee pain Lumbar back pain Gout Type 2 diabetes mellitus Hypertension Surgical History S/P triple vessel bypass S/P cholecystectomy H/O: hysterectomy Family History Mother , uterine cancer Cancer CAD (coronary artery disease) Stroke Brother CAD (coronary artery disease) Daughter , lung cancer Cancer Sister Cancer breast and uterine cancer Social History Smoking and tobacco/nicotine status: never used tobacco/nicotine Alcohol intake: never Substance/Drug Use: never Current occupational status: retired Do you think of yourself as: Straight/Heterosexual Current gender identity: Female Female Reproductive History: Para: 7 Spontaneous abortions: No Vitals/I&O/Wt Last Vital Signs Temp 97.7 F 12/29/24 17:20 Pulse 89 12/29/24 17:20 Resp 15 12/29/24 17:20 BP 102/60 12/29/24 17:20 Pulse Ox 94 12/29/24 17:20 O2 Del Method Room Air 12/29/24 17:20 12/29/24 12/29/24 12/29/24 06:59 14:59 22:59 Intake Total 1000 / 1000 0 / 1000 Balance 1000 / 1000 0 / 1000 Weight last 48 hrs Weight 168 lb Weight 168 lb Physical Exam Narrative: Chest: Unlabored breathing room air. No lymphadenopathy. Heart: Regular rate and rhythm. Abdomen: Soft, nontender, nondistended. No masses or lymphadenopathy. Data 12/30/24 05:35 12/30/24 05:35 A&P Assessment and plan (1) GI bleed: Plan 89-year-old female on Eliquis who presents with melanotic stools. I have explained the risks and benefits of a diagnostic EGD and the patient agrees to proceed. I have explained the risks and benefits of a diagnostic colonoscopy and the patient agrees to proceed. PDMP PDMP Reviewed: Not Reviewed Coding Level of Care Code 76678 Diagnoses GI bleed K92.2
--- NOTE | 2024-12-29 20:11 | PC.NURSE ---
New blood tubing used for second unit of blood, no blood products infusing at shift change.
[2024-12-29] MEDS: acetaminophen 325 mg Tablet 650 MG PO (21:53)
[2024-12-29] MEDS: gabapentin 400 mg Capsule 800 MG PO (21:53)
--- NOTE | 2024-12-29 21:58 | PC.NURSE ---
infused of blood rate increased to 150 at 2024
[2024-12-29] MEDS: sodium chloride 0.9% 1,000 ML 50 ML IV (22:11)
[2024-12-30] VITALS (10 sets, daily range): BP systolic 89–116; BP diastolic 46–69; PULSE 72–97; RESP 16–19; TEMP 36.5–36.8; O2SAT 93–97
[2024-12-30 01:20] LABS: Hematocrit 22.4 % (36-47)
[2024-12-30 05:53] LABS: Basophils % 0.4 %; Eosinophils # 0.2 10^3/uL (0.0-0.8); Eosinophils % 4.1 %; Hematocrit 24.3 % (36-47); Lymphocytes # 0.8 10^3/uL (0.8-4.8); Lymphocytes % 15.9 %; Mean Corpuscular HGB Conc 30.9 g/dL (30-55); Mean Corpuscular Hemoglobin 27.2 pg (27-33); Mean Platelet Volume 9.3 fL (7.4-10.4); Monocytes # 0.7 10^3/uL (0.2-0.9); Monocytes % 14.1 %; Neutrophils # 3.32 10^3/uL (1.8-7.7); Neutrophils % 64.9 %; Nucleated Red Blood Cells % 0 %; Platelet Count 293 10^3/cmm (157-399); Red Blood Count 2.76 10^6/uL (3.85-5.65); Red Cell Distribution Width 18.7 % (12.1-15.1); White Blood Count 5.11 10^3/uL (3.29-11.43)
[2024-12-30 06:15] LABS: Alanine Aminotransferase 9 U/L (0-33); Albumin Level 3.2 g/dL (3.5-5.2); Alkaline Phosphatase 93 U/L (35-105); Anion Gap 14.8 (5-19); Aspartate Amino Transferase 7 U/L (0-32); Blood Urea Nitrogen 55 mg/dL (8-23); Calcium 8.2 mg/dL (8.5-10.5); Carbon Dioxide 28 mmol/L (22-29); Chloride 102 mmol/L (98-107); Creatinine Clr Calc Pharmacy 25.0571; Globulin 2.4 g/dL (1.3-4.6); Glucose 82 mg/dL (65-115); Osmolality Calculated 304 mOsm/kg (285-295); Potassium 4.8 mmol/L (3.5-5.1); Sodium 140 mmol/L (136-145); Total Protein 5.6 g/dL (6.6-8.7)
[2024-12-30] MEDS: gabapentin 400 mg Capsule 800 MG PO ×3 (08:43→20:45)
[2024-12-30] MEDS: amiodarone 200 mg Tablet PO (08:43)
[2024-12-30] MEDS: ATORVASTATIN 10 MG TABLET 20 MG PO (08:44)
[2024-12-30] MEDS: pantoprazole 40 mg SDV IVP ×2 (08:44→20:46)
--- NOTE | 2024-12-30 08:59 | P.PN_ITS ---
Subjective 2 Subjective: Continues with melanotic stools Abdomen benign Waiting for Eliquis to wear off until 12/31 Vitals/I&O/Wt Last Vital Signs Temp 97.7 F 12/30/24 07:35 Pulse 80 12/30/24 07:35 Resp 16 12/30/24 07:35 BP 91/54 12/30/24 07:35 Pulse Ox 97 12/30/24 07:35 O2 Del Method Nasal Cannula 12/30/24 07:35 O2 Flow Rate 1 12/30/24 08:00 12/29/24 12/30/24 12/30/24 22:59 06:59 14:59 Intake Total 350 / 1350 590 / 1940 Balance 350 / 1350 590 / 1940 Weight last 48 hrs Weight 170 lb 14.4 oz Weight 168 lb Weight 168 lb Physical Exam 2 Narrative: Chest: Unlabored breathing room air. No lymphadenopathy. Heart: Regular rate and rhythm. Abdomen: Soft, nontender, nondistended. No masses or lymphadenopathy. Data 12/30/24 05:35 12/30/24 05:35 A&P Assessment and plan (1) GI bleed: Plan 89-year-old female whom surgery was consulted for melanotic stools. Waiting for Eliquis to wear off. Planning on EGD and colonoscopy on 12/31/2024. I have explained the risks and benefits of a diagnostic colonoscopy and the patient agrees to proceed. I have explained the risks and benefits of a diagnostic EGD and the patient agrees to proceed. PDMP PDMP Reviewed: Not Reviewed Attestations 2 Medical Necessity Statement*: N/A Coding Level of Care Code 47041 Diagnoses GI bleed K92.2
[2024-12-30] MEDS: bisacodyl 5 mg Tablet 40 MG PO ×2 (10:33→20:45)
--- NOTE | 2024-12-30 10:54 | CTR_ITS ---
PROCEDURE INFORMATION: Exam: CT Abdomen And Pelvis Without Contrast Exam date and time: 12/30/2024 11:30 AM Age: 89 years old Clinical indication: Injury or trauma; Fall; Constipation; Blunt; Generalized; Prior surgery; Surgery date: 6+ months; Surgery type: Hyst, gb, triple bypass; Additional info: Assess for hemoperitoneum, fall, on eliquis, anemia 5.3, assess for bleeding TECHNIQUE: Imaging protocol: Computed tomography of the abdomen and pelvis without contrast. Radiation optimization: All CT scans at this facility use at least one of these dose optimization techniques: automated exposure control; mA and/or kV adjustment per patient size (includes targeted exams where dose is matched to clinical indication); or iterative reconstruction. COMPARISON: CR XR hip RT 2-3V wo/w pel* [id number] 12/29/2024 1:16 PM RADIATION DOSE METRICS: Total DLP (mGy-cm): 770.93 FINDINGS: Lungs: Atelectatic changes of the lung bases. Pleural spaces: There is a large, low-density right pleural effusion with Hounsfield units averaging between 8 and 12 suggesting a simple pleural effusion. Tiny left pleural effusion. Heart: Mild cardiomegaly. No pericardial effusion. Coronary arteries: Extensive calcified coronary artery disease. Status post CABG. Liver: There is a nonspecific 2.6 cm low-density lesion in the right lobe of the liver which does not appear to represent a simple cyst. This lesion can not be further evaluated due the lack of IV contrast. Consider initial evaluation with ultrasound. Gallbladder and biliary ducts: Status post cholecystectomy. Pancreas: Normal. No ductal dilation. Spleen: The spleen is normal in appearance. Adrenal glands: The adrenal glands are normal in appearance. 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 No evidence of hydronephrosis or nephroureteral calculi on either side. Stomach and bowel: The small bowel loops are not thickened and are nondilated. There is colonic diverticulosis but no evidence of diverticulitis. Appendix: The appendix is normal in appearance. No evidence of appendicitis. The appendix is normal in appearance. No evidence of appendicitis. Intraperitoneal space: Unremarkable. No free air. No significant fluid collection. Vasculature: Unremarkable. No abdominal aortic aneurysm. Lymph nodes: Unremarkable. No enlarged lymph nodes. Urinary bladder: The urinary bladder is normal in appearance. Reproductive: Status post hysterectomy. 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 Suspected small right hip effusion. There are severe multilevel chronic degenerative changes throughout the spine. No acute osseous lesions identified. Soft tissues: Unremarkable. CT/CT abdomen pelvis wo con [id number] IMPRESSION: 1. No CT evidence of acute intra-abdominal pathology. No intra-abdominal hemorrhage identified. 2. 2.6 cm low-density lesion in the right lobe of the liver which does not appear to represent a simple cyst. A small hepatic mass can not be excluded. Recommend initial workup with ultrasound evaluation. 3. Large grossly simple right pleural effusion and tiny left pleural effusion. 4. Colonic diverticulosis but no evidence of diverticulitis.
[2024-12-30] MEDS: magnesium citrate Btl 296 mL PO ×2 (12:39→20:46)
[2024-12-30 16:53] LABS: Hematocrit 26.7 % (36-47)
--- NOTE | 2024-12-30 17:01 | P.PN_ITS ---
Subjective 2 Subjective: Hemoglobin improved to 7.5 today. Creatinine improving at 1.6. Vitals/I&O/Wt Last Vital Signs Temp 98.2 F 12/30/24 16:00 Pulse 97 12/30/24 16:00 Resp 16 12/30/24 16:00 BP 93/57 12/30/24 16:00 Pulse Ox 97 12/30/24 16:00 O2 Del Method Nasal Cannula 12/30/24 16:00 O2 Flow Rate 1 12/30/24 16:00 12/30/24 12/30/24 12/30/24 06:59 14:59 22:59 Intake Total 590 / 1940 540 / 540 Balance 590 / 1940 540 / 540 Weight last 48 hrs Weight 77.519 kg Weight 76.204 kg Weight 76.204 kg Physical Exam 2 Narrative: General: No acute distress, AO x3 HEENT: PERRLA, pupils bilaterally equal and reactive, pallors not present Chest: Normal vesicular breath sounds, no added sounds, equal good air entry bilaterally CVS: S1-S2 regular, no murmurs, no tachycardia, no gallops, no rubs Abdomen: Soft, nontender, no organomegaly, bowel sounds present Neuro: No focal deficits, no facial deformity, AO x3, power 5/5 in all limbs Data 12/30/24 16:05 12/30/24 05:35 Micro: Microbiology 12/29/24 14:32 Urine Culture - Preliminary Urine,Clean Catch Gram Negative Rods A&P Assessment and plan (1) GI bleed: Patient presenting with Anemia with Hb 5.3 today with melanotic bowel movements Suspect UGI bleed to be the source Eliquis to be on hold Protonix 80mg ivp now followed by 40mg iv BID surgery consult for endoscopy (2) Anemia: Hb 5.3 today Likely related to chronic blood loss Transfuse 2PRBC today Recheck H&H post transfusion (3) LISA (acute kidney injury): cr at 1.7 likely related to blood loss start NS @ 50 cc/ hr careful hydration due to known CHF (4) A-fib: currently rate controlled holding Eliquis Hold beta blockers given hypotension 82 systolic on arrival, currently BP improved 100 systolic after fluid bolus Plan DVT ppx: Scds only, no a/c due to GI bleed Full code December 30, 2024 Hemoglobin better at 7.5 will repeat at 4 PM today. Continues to have intermittent black stools. Getting bowel prep today for planned endoscopic evaluation tomorrow. Continue to hold Eliquis. IV fluids to continue at 50 cc an hour today. Blood pressure soft, continue holding carvedilol and Entresto. PDMP PDMP Reviewed: Not Reviewed Attestations 2 Medical Necessity Statement*: Planned endoscopic evaluation tomorrow Coding Level of Care Code Acute Code for Chg Fwd Diagnoses GI bleed K92.2 Anemia D64.9 LISA (acute kidney injury) N17.9 Paroxysmal atrial fibrillation I48.0 Atrial fibrillation type: paroxysmal
[2024-12-31] VITALS (18 sets, daily range): BP systolic 84–117; BP diastolic 36–70; PULSE 79–118; RESP 15–22; TEMP 36.7–37.2; O2SAT 90–100
[2024-12-31] MEDS: magnesium citrate Btl 296 mL 150 ML PO (03:40)
[2024-12-31] MEDS: sodium chloride 0.9% 1,000 ML 50 ML IV (05:24)
--- NOTE | 2024-12-31 06:10 | ANES.PREANE2 ---
Pre-Anesthetic Assessment Height/Weight: Height 5 ft 6 in Weight 170 lb 14.4 oz Temp Pulse Resp BP Pulse Ox O2 Del Method O2 Flow Rate 98.2 F 104 H 17 102/58 98 Nasal Cannula 1 12/31/24 04:00 12/31/24 04:00 12/31/24 04:00 12/31/24 04:00 12/31/24 04:00 12/30/24 16:00 12/30/24 16:00 Preop Diagnosis: anemia Operation Date: 12/31/24 09:00 Proposed Procedures p EGD(Not Applicable) - Keagan Hoskins MD s Colonoscopy(Not Applicable) - Keagan Hoskins MD Was Beta Mary taken within 24 hours: Yes Was Clonidine taken within 24 hours: N/A Social No alcohol and No tobacco Exam alert and oriented x 3 Airway Submandibular: within normal limits Cervical ROM: Other (limited) Mallampati: Class III Comments: Comments: edentulous Anesthetic Plan ASA status: 3 Anesthesia: MAC Other: Patient initially admitted 12/29/2024 after experiencing a fall at home. Hemoglobin found to be 5.3 at that time. Patient reported black tarry stools for at least a year No prior issues with anesthesia Patient is on chronic Eliquis for A-fib Patient has been placed on IV Protonix History of hypertension on carvedilol and sacubitril?valsartan Vital stable this morning, heart rate remains a little high, 104 this a.m. Hemoglobin 8.2 Plan for MAC anesthesia Medications/Allergies Home Medications ?Medication ?Instructions ?Recorded ?Confirmed ?Last Taken ?Type aspirin 81 mg tablet,delayed 81 mg PO DAILY 12/06/19 12/29/24 12/29/24 History release (Adult Aspirin Regimen) sacubitril 24 mg-valsartan 26 mg 1 tab PO BID 01/21/20 12/29/24 12/29/24 History tablet (Entresto) apixaban 5 mg tablet (Eliquis) 5 mg PO BID 07/02/20 12/29/24 12/29/24 History amiodarone 200 mg tablet 200 mg PO DAILY 07/10/20 12/29/24 12/29/24 History nitroglycerin 0.4 mg sublingual 0.4 mg sublingual Q5M PRN Chest 02/07/23 12/29/24 Unknown History tablet (Nitrostat) Pain inhalational spacing device #1 ea 09/29/23 12/29/24 Unknown Rx (BreatheRite Valved MDI Chamber spacer) blood sugar diagnostic (Blood #200 ea 03/18/24 12/29/24 Unknown Rx Glucose Test strips) blood-glucose meter #1 ea 03/18/24 12/29/24 Unknown Rx lancets #200 ea 03/18/24 12/29/24 Unknown Rx diaper,brief,adult,disposable #240 ea 05/04/24 12/29/24 Unknown Rx (Depend Underwear For Women Small-Medium) albuterol sulfate 90 mcg/actuation See Rx Instructions .Route 06/21/24 12/29/24 Unknown Rx aerosol inhaler (Ventolin HFA) .COMPLEX #18 grams furosemide 20 mg tablet 20 mg PO DAILY for extra fluid on 09/13/24 12/29/24 12/29/24 Rx body 90 days #90 tabs atorvastatin 20 mg tablet 20 mg PO DAILY 12/29/24 12/29/24 12/29/24 History carvedilol 6.25 mg tablet 6.25 mg PO BID 12/29/24 12/29/24 12/29/24 History gabapentin 800 mg tablet See Rx Instructions .Route .COMPLEX 12/29/24 12/29/24 12/29/24 History glipizide 2.5 mg tablet, extended 2.5 mg PO DAILY 12/29/24 12/29/24 12/29/24 History release 24 hr lovastatin 20 mg tablet 20 mg PO DAILY 12/29/24 12/29/24 12/29/24 History meloxicam 15 mg tablet 15 mg PO DAILY 12/29/24 12/29/24 12/29/24 History omega 4-xpm-tky-fish oil 300 1 cap PO DAILY 12/29/24 12/29/24 12/29/24 History mg-1,000 mg capsule (Fish Oil) potassium chloride 10 mEq 20 meq PO BID 12/29/24 12/29/24 12/29/24 History capsule,extended release vitamin B complex 1 tab PO DAILY 12/29/24 12/29/24 12/29/24 History Allergies Allergy/AdvReac Type Severity Reaction Status Date / Time metformin Allergy diarrhea Verified 09/13/24 08:30 Penicillins Allergy hives Verified 09/13/24 08:30 Current Medications Generic Name Dose Route Start Last Admin Trade Name [place] PRN Reason Stop Dose Admin Acetaminophen 650 mg 12/29/24 16:54 12/29/24 21:53 Acetaminophen 325 Mg Tablet PO 650 mg Q6H PRN Administration Mild/Mod Pain Or Temp >/= 101 Amiodarone HCl 200 mg 12/30/24 09:00 12/30/24 08:43 Amiodarone 200 Mg Tablet PO 200 mg DAILY ILYA Administration Atorvastatin Calcium 20 mg 12/30/24 09:00 12/30/24 08:44 Atorvastatin 10 Mg Tablet PO 20 mg DAILY ILYA Administration Gabapentin 800 mg 12/29/24 21:45 12/30/24 20:45 Gabapentin 400 Mg Capsule PO 800 mg TID ILYA Administration Sodium Chloride 1,000 mls @ 50 mls/hr 12/29/24 16:54 12/31/24 05:24 Sodium Chloride 0.9% IV 50 mls/hr .Q20H ILYA Administration Pantoprazole Sodium 40 mg 12/29/24 16:54 12/30/24 20:46 Pantoprazole 40 Mg Sdv IVP 40 mg Q12H ILYA Administration PFSH Anesthesia Medical History Pressure ulcer Weakness A-fib Enrolled in chronic care management Osteoporosis Restless leg syndrome Hyperlipidemia DDD (degenerative disc disease), lumbar Bilateral chronic knee pain Lumbar back pain Gout Type 2 diabetes mellitus Hypertension Surgical History S/P triple vessel bypass S/P cholecystectomy H/O: hysterectomy Family History Mother , uterine cancer Cancer CAD (coronary artery disease) Stroke Brother CAD (coronary artery disease) Daughter , lung cancer Cancer Sister Cancer breast and uterine cancer Social History Smoking and tobacco/nicotine status: never used tobacco/nicotine Alcohol intake: never Substance/Drug Use: never Current occupational status: retired Do you think of yourself as: Straight/Heterosexual Current gender identity: Female Female Reproductive History Para: 7 Spontaneous abortions: No Data Anesthesia 12/30/24 16:05 12/30/24 05:35 Short CBC 12/29/24 12/30/24 12/30/24 Range/Units 13:06 00:35 05:35 WBC 4.04 5.11 (3.29-11.43) 10^3/uL Hgb 5.30 L* 7.00 L D 7.50 L (11.27-16.99) g/dL Hct 17.7 L* 22.4 L 24.3 L (36-47) % MCV 87.2 88.0 (85-98) fl Plt Count 286 293 (157-399) 10^3/cmm Neut % (Auto) 67.6 64.9 % Neut # (Auto) 2.73 3.32 (1.8-7.7) 10^3/uL 12/30/24 Range/Units 16:05 WBC (3.29-11.43) 10^3/uL Hgb 8.20 L (11.27-16.99) g/dL Hct 26.7 L (36-47) % MCV (85-98) fl Plt Count (157-399) 10^3/cmm Neut % (Auto) % Neut # (Auto) (1.8-7.7) 10^3/uL BMP 12/29/24 12/30/24 13:06 05:35 Sodium 136 140 Potassium 5.3 H 4.8 Chloride 101 102 Carbon Dioxide 26 28 BUN 57 H 55 H Creatinine 1.7 H 1.6 H Glucose 109 82 Calcium 8.1 L 8.2 L Cardiac Enzymes 12/29/24 Range/Units 13:06 Troponin T Baseline 29 H (0-10) ng/L Liver Function 12/29/24 12/30/24 Range/Units 13:06 05:35 Total Bilirubin 0.7 1.0 (0.15-1.2) mg/dL AST 8 7 (0-32) U/L ALT 9 9 (0-33) U/L Alkaline Phosphatase 93 93 (35-105) U/L Albumin 3.3 L 3.2 L (3.5-5.2) g/dL Urine 12/29/24 12/29/24 Range/Units 13:26 14:32 Urine Color Cancelled Yellow Urine Appearance Cancelled Clear Urine pH Cancelled 7.0 Ur Specific [place] Cancelled 1.008 Urine Protein Cancelled Negative Urine Glucose (UA) Cancelled Negative Urine Ketones Cancelled Negative Urine Nitrate Cancelled Negative Urine Bilirubin Cancelled Negative Ur Leukocyte Esterase Cancelled 1+ A Urine RBC Cancelled 3-5 Urine WBC Cancelled 11-20 H Ur Renal Epithelial Cell Cancelled Blood Bank 12/29/24 14:02 Blood Type A Positive Rho(D) Type Rh positive Antibody Screen Negative Microbiology 12/29/24 14:32 Urine Culture - Preliminary Urine,Clean Catch Gram Negative Rods
[2024-12-31] MEDS: sodium chloride 0.9% 1,000 ML 15 ML IV (08:27)
--- NOTE | 2024-12-31 08:55 | P.PN_ITS ---
Subjective 2 Subjective: Melanotic stools Vitals/I&O/Wt Last Vital Signs Temp 98.6 F 12/31/24 08:10 Pulse 112 H 12/31/24 08:10 Resp 18 12/31/24 08:10 BP 117/69 12/31/24 08:10 Pulse Ox 91 12/31/24 08:10 O2 Del Method Room Air 12/31/24 08:10 O2 Flow Rate 1 12/30/24 16:00 12/30/24 12/31/24 12/31/24 22:59 06:59 14:59 Intake Total 800 / 1340 500 / 1840 Output Total Balance 797 / 1337 500 / 1837 Weight last 48 hrs Weight 170 lb Weight 170 lb 14.4 oz Weight 168 lb Weight 168 lb Physical Exam 2 Narrative: Chest: Unlabored breathing room air. No lymphadenopathy. Heart: Regular rate and rhythm. Abdomen: Soft, nontender, nondistended. No masses or lymphadenopathy. Data 12/30/24 16:05 12/30/24 05:35 Micro: Microbiology 12/29/24 14:32 Urine Culture - Preliminary Urine,Clean Catch Gram Negative Rods A&P Assessment and plan (1) GI bleed: Plan 89-year-old female who presented with melanotic stools. Discussed risk and benefits and patient agreed to proceed with diagnostic EGD and diagnostic colonoscopy. PDMP PDMP Reviewed: Not Reviewed Attestations 2 Medical Necessity Statement*: N/A Coding Level of Care Code 11368 Diagnoses GI bleed K92.2
--- NOTE | 2024-12-31 09:35 | ANE.PACU2 ---
Inpatient post-anesthesia follow up: Airway intact: Yes Vital signs: Temperature 98.2 F Pulse Rate 93 Respiratory Rate 20 Blood Pressure 105/52 Pulse Oximetry 93 Oxygen Delivery Me thod [Rate & Nasal Cannula Delivery Changed T o] Oxygen Delivery Me thod Room Air Oxygen Flow Rate [ Rate & 1 Delivery Changed T o] Oxygen Flow Rate 1 Fraction of Inspir ed Oxygen Hydration adequate: Yes Nausea and vomiting: No Pain level: 1 Mental status: Baseline
--- NOTE | 2024-12-31 13:43 | PC.SOCIAL ---
IMM UPDATED IMM dated and initialed, copy given to patient and copy placed in chart.
--- NOTE | 2024-12-31 13:56 | P.PN_ITS ---
Subjective 2 Subjective: Patient underwent EGD and colonoscopy today. Findings of mild gastritis without active bleeding. Medications: Reviewed: Yes Vitals/I&O/Wt Last Vital Signs Temp 98.6 F 12/31/24 11:19 Pulse 102 H 12/31/24 11:19 Resp 17 12/31/24 11:19 BP 88/44 12/31/24 11:19 Pulse Ox 90 12/31/24 11:19 O2 Del Method Room Air 12/31/24 11:19 O2 Flow Rate 1 12/30/24 16:00 12/30/24 12/31/24 12/31/24 22:59 06:59 14:59 Intake Total 800 / 1340 500 / 1840 Output Total 3 / 3 Balance 797 / 1337 500 / 1837 Weight last 48 hrs Weight 77.111 kg Weight 77.519 kg Weight 76.204 kg Physical Exam 2 Narrative: General: No acute distress, AO x3 HEENT: PERRLA, pupils bilaterally equal and reactive, pallors not present Chest: Normal vesicular breath sounds, no added sounds, equal good air entry bilaterally CVS: S1-S2 regular, no murmurs, no tachycardia, no gallops, no rubs Abdomen: Soft, nontender, no organomegaly, bowel sounds present Neuro: No focal deficits, no facial deformity, AO x3, power 5/5 in all limbs Data 12/30/24 16:05 12/30/24 05:35 Micro: Microbiology 12/29/24 14:32 Urine Culture - Final Urine,Clean Catch Escherichia coli A&P Assessment and plan (1) GI bleed: Patient presenting with Anemia with Hb 5.3 today with melanotic bowel movements Suspect UGI bleed to be the source Eliquis to be on hold Protonix 80mg ivp now followed by 40mg iv BID surgery consult for endoscopy (2) Anemia: Hb 5.3 today Likely related to chronic blood loss Transfuse 2PRBC today Recheck H&H post transfusion (3) LISA (acute kidney injury): cr at 1.7 likely related to blood loss start NS @ 50 cc/ hr careful hydration due to known CHF (4) A-fib: currently rate controlled holding Eliquis Hold beta blockers given hypotension 82 systolic on arrival, currently BP improved 100 systolic after fluid bolus Plan DVT ppx: Scds only, no a/c due to GI bleed Full code December 30, 2024 Hemoglobin better at 7.5 will repeat at 4 PM today. Continues to have intermittent black stools. Getting bowel prep today for planned endoscopic evaluation tomorrow. Continue to hold Eliquis. IV fluids to continue at 50 cc an hour today. Blood pressure soft, continue holding carvedilol and Entresto. December 31, 2024 s/p EGD and colonoscopy today. Extensive diverticulosis on colonoscopy and gastritis on EGD without active bleeding. Recheck H&H today. continue protonix 40mg iv bid today. If Hb remains stable over next 24 hrs, may be able to discharge home if no signs of re bleeding. D/c IVF today PDMP PDMP Reviewed: Not Reviewed Attestations 2 Medical Necessity Statement*: s/p EGD and colonoscopy today Coding Level of Care Code Acute Code for Chg Fwd Diagnoses GI bleed K92.2 Anemia D64.9 LISA (acute kidney injury) N17.9 Paroxysmal atrial fibrillation I48.0 Atrial fibrillation type: paroxysmal
[2024-12-31] MEDS: gabapentin 400 mg Capsule 800 MG PO ×2 (14:41→20:31)
[2024-12-31] MEDS: levoFLOXacin 500 mg Tablet PO (14:41)
[2024-12-31 14:57] LABS: Basophils % 0.6 %; Eosinophils # 0.2 10^3/uL (0.0-0.8); Eosinophils % 3.7 %; Hematocrit 24.5 % (36-47); Lymphocytes # 0.6 10^3/uL (0.8-4.8); Lymphocytes % 12.3 %; Mean Corpuscular HGB Conc 29.8 g/dL (30-55); Mean Corpuscular Hemoglobin 27.2 pg (27-33); Mean Corpuscular Volume 91.4 fl (85-98); Mean Platelet Volume 9.2 fL (7.4-10.4); Monocytes # 0.5 10^3/uL (0.2-0.9); Monocytes % 8.8 %; Neutrophils # 3.82 10^3/uL (1.8-7.7); Neutrophils % 74.2 %; Nucleated Red Blood Cells % 0 %; Platelet Count 304 10^3/cmm (157-399); Red Blood Count 2.68 10^6/uL (3.85-5.65); Red Cell Distribution Width 19.6 % (12.1-15.1); White Blood Count 5.14 10^3/uL (3.29-11.43)
[2024-12-31 15:14] LABS: Alanine Aminotransferase 11 U/L (0-33); Albumin Level 3.1 g/dL (3.5-5.2); Alkaline Phosphatase 100 U/L (35-105); Anion Gap 12.6 (5-19); Aspartate Amino Transferase 9 U/L (0-32); Blood Urea Nitrogen 21 mg/dL (8-23); Calcium 8.4 mg/dL (8.5-10.5); Carbon Dioxide 26 mmol/L (22-29); Chloride 103 mmol/L (98-107); Globulin 2.6 g/dL (1.3-4.6); Glucose 148 mg/dL (65-115); Osmolality Calculated 292 mOsm/kg (285-295); Potassium 3.6 mmol/L (3.5-5.1); Sodium 138 mmol/L (136-145); Total Bilirubin 0.6 mg/dL (0.15-1.2); Total Protein 5.7 g/dL (6.6-8.7)
[2024-12-31] MEDS: pantoprazole 40 mg SDV IVP (20:31)
[2025-01-01] VITALS (10 sets, daily range): BP systolic 91–108; BP diastolic 49–65; PULSE 80–118; RESP 13–18; TEMP 36.4–36.8; O2SAT 87–97
[2025-01-01 04:44] LABS: Basophils % 0.3 %; Eosinophils # 0.2 10^3/uL (0.0-0.8); Eosinophils % 3.1 %; Lymphocytes # 0.7 10^3/uL (0.8-4.8); Lymphocytes % 10.3 %; Mean Corpuscular HGB Conc 30.8 g/dL (30-55); Mean Corpuscular Hemoglobin 27.6 pg (27-33); Mean Corpuscular Volume 89.7 fl (85-98); Mean Platelet Volume 9.3 fL (7.4-10.4); Monocytes # 0.7 10^3/uL (0.2-0.9); Monocytes % 11.1 %; Neutrophils # 4.99 10^3/uL (1.8-7.7); Neutrophils % 74.8 %; Nucleated Red Blood Cells % 0 %; Platelet Count 293 10^3/cmm (157-399); Red Cell Distribution Width 18.2 % (12.1-15.1); White Blood Count 6.68 10^3/uL (3.29-11.43)
[2025-01-01 04:50] LABS: Alanine Aminotransferase 10 U/L (0-33); Albumin Level 3.2 g/dL (3.5-5.2); Alkaline Phosphatase 98 U/L (35-105); Anion Gap 13.2 (5-19); Aspartate Amino Transferase 9 U/L (0-32); Blood Urea Nitrogen 26 mg/dL (8-23); Calcium 8.2 mg/dL (8.5-10.5); Carbon Dioxide 26 mmol/L (22-29); Chloride 103 mmol/L (98-107); Creatinine Clr Calc Pharmacy 44.4367; Globulin 2.4 g/dL (1.3-4.6); Glucose 117 mg/dL (65-115); Osmolality Calculated 292 mOsm/kg (285-295); Potassium 4.2 mmol/L (3.5-5.1); Sodium 138 mmol/L (136-145); Total Protein 5.6 g/dL (6.6-8.7)
[2025-01-01] MEDS: levoFLOXacin 500 mg Tablet PO (05:14)
--- NOTE | 2025-01-01 09:03 | P.PN_ITS ---
Subjective 2 Subjective: No hematochezia/melena Vitals/I&O/Wt Last Vital Signs Temp 98.2 F 01/01/25 07:50 Pulse 118 H 01/01/25 07:50 Resp 18 01/01/25 07:50 BP 105/65 01/01/25 07:50 Pulse Ox 92 01/01/25 07:50 O2 Del Method Nasal Cannula 01/01/25 07:50 O2 Flow Rate 1 01/01/25 04:29 12/31/24 01/01/25 01/01/25 22:59 06:59 14:59 Intake Total 1238.083 / 1238.083 350 / 1588.083 240 / 240 Balance 1238.083 / 1238.083 350 / 1588.083 240 / 240 Weight last 48 hrs Weight 170 lb Physical Exam 2 Narrative: unlabored breathing RA RRR Abdomen soft, nt, nd Data 01/01/25 03:10 01/01/25 03:10 Micro: Microbiology 12/29/24 14:32 Urine Culture - Final Urine,Clean Catch Escherichia coli A&P Assessment and plan (1) Melena: Plan 89yo female s/p EGD/colonoscopy. No hematochezia/melena. EGD/colonoscopy unremarkable. PDMP PDMP Reviewed: Not Reviewed Attestations 2 Medical Necessity Statement*: NA Coding Level of Care Code 90061 Diagnoses Melena K92.1
[2025-01-01] MEDS: ATORVASTATIN 10 MG TABLET 20 MG PO (09:53)
[2025-01-01] MEDS: amiodarone 200 mg Tablet PO (09:53)
[2025-01-01] MEDS: gabapentin 400 mg Capsule 800 MG PO ×3 (09:54→20:38)
[2025-01-01] MEDS: pantoprazole 40 mg SDV IVP ×2 (09:54→20:39)
--- NOTE | 2025-01-01 11:35 | XRR_ITS ---
PROCEDURE INFORMATION: Exam: XR Chest Exam date and time: 01/01/2025 2:43 PM Age: 89 years old Clinical indication: Other: Elevated hr TECHNIQUE: Imaging protocol: Radiologic exam of the chest. Views: 1 view. COMPARISON: CR XR chest 1V portable [id number] 12/29/2024 1:11 PM FINDINGS: Lungs: Opacity at the right lung base obscures the right hemidiaphragm. No consolidation on the left. Mild reticular and ground-glass opacity throughout both lungs. Pleural spaces: No pneumothorax. The right lateral costophrenic sulcus is blunted. Heart/Mediastinum: There is moderate enlargement of the cardiac silhouette. Diaphragm: There is moderate asymmetric elevation of the right hemidiaphragm. Bones/joints: Sternal wires are present. There is no displacement to suggest sternal dehiscence. There is mild degenerative disease of the left shoulder. No acute osseous findings. There is severe degenerative disease of the right shoulder. Soft tissues: There are soft tissue calcifications in the right lateral chest wall. XR/XR chest 1V portable [id number] IMPRESSION: 1. Opacity in the inferior right hemithorax obscuring the right hemidiaphragm is consistent with some combination of pleural fluid and atelectasis or consolidation. 2. Increased bilateral pulmonary ground-glass and reticular opacity since 12/29/2024 suggesting increasing interstitial edema. 3. Incidental findings above.
[2025-01-01] MEDS: metoprolol tartrate 25 mg Tablet 12.5 MG PO ×2 (11:57→20:39)
--- NOTE | 2025-01-01 15:01 | P.PN_ITS ---
Subjective 2 Subjective: No acute events overnight. Patient hemodynamically stable. Did receive point of blood transfusion yesterday. Seen with daughter at bedside. Sitting up comfortably in chair. On nasal cannula. Medications: Reviewed: Yes Vitals/I&O/Wt Last Vital Signs Temp 98.0 F 01/01/25 11:26 Pulse 86 01/01/25 14:51 Resp 17 01/01/25 11:26 BP 103/65 01/01/25 11:26 Pulse Ox 97 01/01/25 11:26 O2 Del Method Nasal Cannula 01/01/25 11:26 O2 Flow Rate 1 01/01/25 04:29 01/01/25 01/01/25 01/01/25 06:59 14:59 22:59 Intake Total 350 / 1588.083 480 / 480 Balance 350 / 1588.083 480 / 480 Weight last 48 hrs Weight 77.111 kg Physical Exam 2 Narrative: General: No acute distress, AO x3 HEENT: PERRLA, pupils bilaterally equal and reactive, pallors not present Chest: Normal vesicular breath sounds, no added sounds, equal good air entry bilaterally CVS: S1-S2 regular, no murmurs, no tachycardia, no gallops, no rubs Abdomen: Soft, nontender, no organomegaly, bowel sounds present Neuro: No focal deficits, no facial deformity, AO x3, power 5/5 in all limbs Data 01/01/25 03:10 01/01/25 03:10 Micro: Microbiology 12/29/24 14:32 Urine Culture - Final Urine,Clean Catch Escherichia coli A&P Assessment and plan (1) GI bleed: Patient presenting with Anemia with Hb 5.3 today with melanotic bowel movements Suspect UGI bleed to be the source Eliquis to be on hold Protonix 80mg ivp now followed by 40mg iv BID surgery consult for endoscopy (2) Anemia: Hb 5.3 today Likely related to chronic blood loss Transfuse 2PRBC today Recheck H&H post transfusion (3) LISA (acute kidney injury): cr at 1.7 likely related to blood loss start NS @ 50 cc/ hr careful hydration due to known CHF (4) A-fib: currently rate controlled holding Eliquis Hold beta blockers given hypotension 82 systolic on arrival, currently BP improved 100 systolic after fluid bolus Plan DVT ppx: Scds only, no a/c due to GI bleed Full code December 30, 2024 Hemoglobin better at 7.5 will repeat at 4 PM today. Continues to have intermittent black stools. Getting bowel prep today for planned endoscopic evaluation tomorrow. Continue to hold Eliquis. IV fluids to continue at 50 cc an hour today. Blood pressure soft, continue holding carvedilol and Entresto. December 31, 2024 s/p EGD and colonoscopy today. Extensive diverticulosis on colonoscopy and gastritis on EGD without active bleeding. Recheck H&H today. continue protonix 40mg iv bid today. If Hb remains stable over next 24 hrs, may be able to discharge home if no signs of re bleeding. D/c IVF today Plan for the day: Patient post blood transfusion. Hemoglobin stable at around 8. Continues to remain tachycardic. Blood pressure is better. Does take Coreg at home. Will start low-dose metoprolol 12.5 mg twice daily while monitoring blood pressures with goal over 65. Continue with home dose of amiodarone. Appreciate urine culture. Continue with Levaquin. Remains on nasal cannula. Check chest x-ray. Depending on the chest x-ray will plan for Lasix. Discussed in detail with the patient regarding need to hold off on anticoagulation given concerns for GI bleed requiring blood transfusion. Discussed about risks of having a stroke while holding anticoagulation. Both patient and daughter verbalizes understanding and they are okay with holding off on anticoagulation at discharge. Plan will be to hold off anticoagulation for couple of weeks and then restarting anticoagulation while monitoring hemoglobin. Continue with Protonix twice daily. Add Carafate. PDMP PDMP Reviewed: Not Reviewed Attestations 2 Medical Necessity Statement*: Requires further hospitalization for management of anemia requiring blood transfusion due to GI bleed in a patient on anticoagulation, hypotension Diagnoses GI bleed K92.2 Anemia D64.9 LISA (acute kidney injury) N17.9 Paroxysmal atrial fibrillation I48.0 Atrial fibrillation type: paroxysmal
[2025-01-01] MEDS: FUROsemide 20 mg Tablet PO (15:41)
[2025-01-01] MEDS: sucralfate 1 gm/10 mL Oral Liq UDC PO ×2 (16:36→20:38)
[2025-01-02] VITALS (7 sets, daily range): BP systolic 93–116; BP diastolic 53–70; PULSE 76–102; RESP 16–18; TEMP 36.4–36.8; O2SAT 95–98
[2025-01-02 04:17] LABS: Basophils % 0.3 %; Eosinophils # 0.3 10^3/uL (0.0-0.8); Eosinophils % 5.7 %; Lymphocytes # 0.7 10^3/uL (0.8-4.8); Lymphocytes % 11.4 %; Mean Corpuscular Hemoglobin 27.8 pg (27-33); Mean Corpuscular Volume 92.7 fl (85-98); Monocytes # 0.8 10^3/uL (0.2-0.9); Monocytes % 13.9 %; Neutrophils # 4.07 10^3/uL (1.8-7.7); Neutrophils % 68.4 %; Nucleated Red Blood Cells % 0 %; Platelet Count 285 10^3/cmm (157-399); Red Blood Count 3.02 10^6/uL (3.85-5.65); White Blood Count 5.96 10^3/uL (3.29-11.43)
[2025-01-02 04:36] LABS: Alanine Aminotransferase 11 U/L (0-33); Albumin Level 3.3 g/dL (3.5-5.2); Alkaline Phosphatase 107 U/L (35-105); Anion Gap 11.9 (5-19); Aspartate Amino Transferase 8 U/L (0-32); Blood Urea Nitrogen 22 mg/dL (8-23); Calcium 8.4 mg/dL (8.5-10.5); Carbon Dioxide 29 mmol/L (22-29); Chloride 101 mmol/L (98-107); Globulin 2.5 g/dL (1.3-4.6); Glucose 132 mg/dL (65-115); Osmolality Calculated 289 mOsm/kg (285-295); Potassium 4.9 mmol/L (3.5-5.1); Sodium 137 mmol/L (136-145); Total Bilirubin 0.7 mg/dL (0.15-1.2); Total Protein 5.8 g/dL (6.6-8.7)
[2025-01-02] MEDS: levoFLOXacin 500 mg Tablet 250 MG PO (06:19)
[2025-01-02] MEDS: sucralfate 1 gm/10 mL Oral Liq UDC PO ×2 (06:19→10:02)
[2025-01-02] MEDS: metoprolol tartrate 25 mg Tablet 12.5 MG PO (08:39)
[2025-01-02] MEDS: gabapentin 400 mg Capsule 800 MG PO ×2 (08:39→14:36)
[2025-01-02] MEDS: amiodarone 200 mg Tablet PO (08:39)
[2025-01-02] MEDS: pantoprazole 40 mg SDV IVP (08:39)
[2025-01-02] MEDS: ATORVASTATIN 10 MG TABLET 20 MG PO (08:40)
--- NOTE | 2025-01-02 10:39 | P.PN_ITS ---
Subjective 2 Subjective: No melena, no hematochezia Vitals/I&O/Wt Last Vital Signs Temp 97.7 F 01/02/25 07:58 Pulse 90 01/02/25 07:58 Resp 18 01/02/25 07:58 BP 116/70 01/02/25 07:58 Pulse Ox 98 01/02/25 07:58 O2 Del Method Nasal Cannula 01/02/25 07:58 O2 Flow Rate 2 01/01/25 16:22 01/01/25 01/02/25 01/02/25 22:59 06:59 14:59 Intake Total 240 / 720 240 / 240 Balance 240 / 720 240 / 240 Weight last 48 hrs Weight 167 lb 6.4 oz Physical Exam 2 Narrative: Chest: Unlabored breathing room air. No lymphadenopathy. Heart: Regular rate and rhythm. Abdomen: Soft, nontender, nondistended. No masses or lymphadenopathy. Data 01/02/25 04:09 01/02/25 04:09 A&P Assessment and plan (1) GI bleed: Plan 89-year-old female whom surgery was consulted for occult GI bleed. No evidence of GI bleed. Continue care per medicine. PDMP PDMP Reviewed: Not Reviewed Attestations 2 Medical Necessity Statement*: N/A Coding Level of Care Code 42353 Diagnoses GI bleed K92.2
--- NOTE | 2025-01-02 15:06 | PM.DCS ---
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 Hb was incidentally noted to be at ~5, previously at ~9 from 08/2024. She had a BM in the ER which was melanotic, patient states that she has been having black tarry bowel movements for at least 9-10 months but did not know that this was abnormal. She is on Eliquis chronically for A fib. She was admitted in view of GI bleed and blood loss anemia. She received 3 units packed red blood cell transfusion during the course of her admission here. Hemoglobin at discharge is noted to be improved at 8.4. She is discharged today on iron and multivitamin supplementation. She underwent EGD and colonoscopy which did not show any obvious signs of active bleeding. There was noted to be some gastritis however no acute bleeding. She was started on Protonix 40 mg p.o. twice daily for findings of gastritis. After risk-benefit discussion, Eliquis has been placed at hold at the time of discharge. Recommended to follow-up with primary care provider for a repeat hemoglobin check in 1 to 2 weeks and also follow-up with her delivery helper at [facility] to decide regarding reinitiation of Eliquis in about 2 weeks. Patient counseled about risk of stroke and other potential VTE events in the absence of Eliquis. Patient understands the high risk nature of stopping Eliquis, however understands that given GI bleeding and profound anemia risks of continuing Eliquis outweigh the benefits at this time. During the hospital admission her systolic blood pressures were noted to be borderline low between 95-100 systolic. She has been instructed to maintain a blood pressure chart at home after discharge. Recommended to hold Entresto if systolic blood pressure is less than 100 mmHg. Patient acknowledges understanding of the plan. Follow-up with cardiology within 1 to 2 weeks of discharge. Follow-up with PCP in 1 week of discharge. She had received IV fluids initially upon arrival, this resulted in interval development of pulmonary edema on January 01, 2025 for which patient was given IV Lasix. Home dose of Lasix has been continued at the time of discharge. Incidentally urine culture was noted to have E. coli, oral levofloxacin has been added at discharge for this reason. Physical Exam Narrative: General: No acute distress, AO x3 HEENT: PERRLA, pupils bilaterally equal and reactive, pallors not present Chest: Normal vesicular breath sounds, no added sounds, equal good air entry bilaterally CVS: S1-S2 regular, no murmurs, no tachycardia, no gallops, no rubs Abdomen: Soft, nontender, no organomegaly, bowel sounds present Neuro: No focal deficits, no facial deformity, AO x3, power 5/5 in all limbs Discharge Data Studies Completed and Pending Completed Studies During Hospitalization Category Date Time Status CT abdomen pelvis wo con [id number] Routine Cat Scan 12/30/24 10:54 Completed CXRP [XR chest 1V portable [id number]] Routine Exams 01/01/25 11:35 Completed XR chest 1V portable [id number] Stat Exams 12/29/24 12:58 Completed XR hip RT 2-3V wo/w pel* [id number] Stat Exams 12/29/24 12:58 Completed XR shoulder RT min 2V* [id number] Stat Exams 12/29/24 12:58 Completed Radiology Impressions Hip/Pelvis X-Ray 12/29/24 12:58 Impression: 1. Negative for right hip fracture. 2. Severe osteoarthritis of the right hip. 3. Moderate osteoarthritis of the left hip. Shoulder X-Ray 12/29/24 12:58 Impression: 1. Negative for fracture or dislocation. 2. 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 Abdomen/Pelvis CT 12/30/24 10:54 IMPRESSION: 1. No CT evidence of acute intra-abdominal pathology. No intra-abdominal hemorrhage identified. 2. 2.6 cm low-density lesion in the right lobe of the liver which does not appear to represent a simple cyst. A small hepatic mass can not be excluded. Recommend initial workup with ultrasound evaluation. 3. Large grossly simple right pleural effusion and tiny left pleural effusion. 4. Colonic diverticulosis but no evidence of diverticulitis. Chest X-Ray 01/01/25 11:35 IMPRESSION: 1. Opacity in the inferior right hemithorax obscuring the right hemidiaphragm is consistent with some combination of pleural fluid and atelectasis or consolidation. 2. Increased bilateral pulmonary ground-glass and reticular opacity since 12/29/2024 suggesting increasing interstitial edema. 3. Incidental findings above. Laboratory Results WBC 5.96 10^3/uL (3.29-11.43) 01/02/25 04:09 RBC 3.02 10^6/uL (3.85-5.65) L 01/02/25 04:09 Hgb 8.40 g/dL (11.27-16.99) L 01/02/25 04:09 Hct 28.0 % (36-47) L 01/02/25 04:09 MCV 92.7 fl (85-98) 01/02/25 04:09 MCH 27.8 pg (27-33) 01/02/25 04:09 MCHC 30.0 g/dL (30-55) 01/02/25 04:09 RDW 19.0 % (12.1-15.1) H 01/02/25 04:09 Plt Count 285 10^3/cmm (157-399) 01/02/25 04:09 MPV 9.0 fL (7.4-10.4) 01/02/25 04:09 Neut % (Auto) 68.4 % 01/02/25 04:09 Lymph % (Auto) 11.4 % 01/02/25 04:09 [place] % (Auto) 13.9 % 01/02/25 04:09 Eos % (Auto) 5.7 % 01/02/25 04:09 Baso % (Auto) 0.3 % 01/02/25 04:09 Neut # (Auto) 4.07 10^3/uL (1.8-7.7) 01/02/25 04:09 Lymph # (Auto) 0.7 10^3/uL (0.8-4.8) L 01/02/25 04:09 [place] # (Auto) 0.8 10^3/uL (0.2-0.9) 01/02/25 04:09 Eos # (Auto) 0.3 10^3/uL (0.0-0.8) 01/02/25 04:09 Baso # (Auto) 0.0 10^3/uL (0.0-0.1) 01/02/25 04:09 Nucleated RBC % (auto) 0 % 01/02/25 04:09 Nucleated RBCs # 0.0 /100WBC 01/02/25 04:09 Sodium 137 mmol/L (136-145) 01/02/25 04:09 Potassium 4.9 mmol/L (3.5-5.1) 01/02/25 04:09 Chloride 101 mmol/L (98-107) 01/02/25 04:09 Carbon Dioxide 29 mmol/L (22-29) 01/02/25 04:09 Anion Gap 11.9 (5-19) 01/02/25 04:09 BUN 22 mg/dL (8-23) 01/02/25 04:09 Creatinine 1.0 mg/dL (0.5-0.9) H 01/02/25 04:09 GFR Calculation Not Reportable 01/02/25 04:09 Glucose 132 mg/dL (65-115) H 01/02/25 04:09 Calculated Osmolality 289 mOsm/kg (285-295) 01/02/25 04:09 Calcium 8.4 mg/dL (8.5-10.5) L 01/02/25 04:09 Total Bilirubin 0.7 mg/dL (0.15-1.2) 01/02/25 04:09 AST 8 U/L (0-32) 01/02/25 04:09 ALT 11 U/L (0-33) 01/02/25 04:09 Alkaline Phosphatase 107 U/L (35-105) H 01/02/25 04:09 Troponin T Baseline 29 ng/L (0-10) H 12/29/24 13:06 Total Protein 5.8 g/dL (6.6-8.7) L 01/02/25 04:09 Albumin 3.3 g/dL (3.5-5.2) L 01/02/25 04:09 Globulin 2.5 g/dL (1.3-4.6) 01/02/25 04:09 Urine Color Yellow (Yellow) 12/29/24 14:32 Urine Appearance Clear (CLEAR) 12/29/24 14:32 Urine pH 7.0 (5-7) 12/29/24 14:32 Ur Specific [place] 1.008 (1.005-1.030) 12/29/24 14:32 Urine Protein Negative (Negative) 12/29/24 14:32 Urine Glucose (UA) Negative (Normal) 12/29/24 14:32 Urine Ketones Negative (Negative) 12/29/24 14:32 Urine Blood 3+ (Negative) A 12/29/24 14:32 Urine Nitrate Negative (Negative) 12/29/24 14:32 Urine Bilirubin Negative (Negative) 12/29/24 14:32 Prot Sulfosalicylic Acd Cancelled 12/29/24 13:26 Urine Urobilinogen 1.0 mg/dL (Negative) 12/29/24 14:32 Ur Leukocyte Esterase 1+ (Negative) A 12/29/24 14:32 Urine RBC 3-5 /hpf (0-2) 12/29/24 14:32 Urine WBC 11-20 /hpf (0-5) H 12/29/24 14:32 Ur Squamous Epith Cells 0-5 /hpf (0-5) 12/29/24 14:32 Ur Transition Epith Cell 5-10 /hpf 12/29/24 14:32 Ur Renal Epithelial Cell Cancelled 12/29/24 13:26 Calcium Oxalate Crystal Cancelled 12/29/24 13:26 Uric Acid Crystals Cancelled 12/29/24 13:26 Triple Phos Crystals Cancelled 12/29/24 13:26 Other Crystals Cancelled 12/29/24 13:26 Amorphous Sediment 1+ /hpf 12/29/24 14:32 Urine Bacteria 4+ /hpf (NONE) H 12/29/24 14:32 Hyaline Casts 2.05 /lpf 12/29/24 14:32 Fine Granular Casts Cancelled 12/29/24 13:26 Coarse Granular Casts Cancelled 12/29/24 13:26 RBC Casts Cancelled 12/29/24 13:26 Other Casts Cancelled 12/29/24 13:26 Urine Mucus Cancelled 12/29/24 13:26 Urine Trichomonas Cancelled 12/29/24 13:26 Urine Yeast Cancelled 12/29/24 13:26 Urine Sperm Cancelled 12/29/24 13:26 Ur Oval Fat Bodies Cancelled 12/29/24 13:26 Blood Type A Positive 12/29/24 14:02 Rho(D) Type Rh positive 12/29/24 14:02 Antibody Screen Negative 12/29/24 14:02 Crossmatch See Detail 12/29/24 14:02 Vitals Last Vital Signs Temp 97.5 F L 01/02/25 12:10 Pulse 76 01/02/25 12:10 Resp 17 01/02/25 12:10 BP 93/54 01/02/25 12:10 Pulse Ox 98 01/02/25 12:10 O2 Del Method Room Air, Nasal Cannula 01/02/25 12:10 O2 Flow Rate 2 01/01/25 16:22 Discharge Plan Discharge Patient Disposition: Home Condition: Stable Prescriptions: New levofloxacin 500 mg Tablet 250 mg PO DAILY@0600 3 Days Qty: 3 0RF pantoprazole [Protonix] 40 mg tablet,delayed release (DR/EC) 40 mg PO BID 28 Days Qty: 56 0RF sucralfate [Carafate] 1 gram tablet 1 g PO BID 28 Days Qty: 56 0RF ferrous sulfate 325 mg (65 mg iron) tablet 325 mg PO DAILY Qty: 30 0RF Continued amiodarone 200 mg tablet 200 mg PO DAILY aspirin [Adult Aspirin Regimen] 81 mg tablet,delayed release (DR/EC) 81 mg PO DAILY (DME) [place] [facility] [place] Instructions .MEDSUPPLY Qty: 1 0RF Rx Instructions: Use as directed for checking blood sugar (DME) Blood Glucose Test Strip See Rx Instructions .MEDSUPPLY Qty: 200 12RF Rx Instructions: Use as directed with glucometer to check blood sugar (DME) lancets [facility] [place] Rx Instructions .MEDSUPPLY Qty: 200 12RF Rx Instructions: Use as directed to prick skin for blood sugar checks (DME) BreatheRite Valved MDI Chamber Spacer See Rx Instructions .Route Qty: 1 0RF Rx Instructions: As directed furosemide 20 mg tablet 20 mg PO DAILY 90 Days Qty: 90 2RF (DME) Depend Underwear For Women S-M Misc See Rx Instructions .Route Qty: 240 11RF Rx Instructions: As directed, 10 daily, size Large Entresto 24-26 mg tablet 1 tab PO BID nitroglycerin [Nitrostat] 0.4 mg tablet, sublingual 0.4 mg sublingual Q5M PRN (Reason: Chest Pain) Rx Instructions: do not exceed 3 doses per episode albuterol sulfate [Ventolin HFA] 90 mcg/actuation HFA aerosol inhaler See Rx Instructions .ROUTE .COMPLEX Qty: 18 0RF Dose Instruction: 2 puffs inhaled every 6 hours as needed Rx Instructions: 2 puffs inhaled every 6 hours as needed. atorvastatin 20 mg tablet 20 mg PO DAILY carvedilol 6.25 mg tablet 6.25 mg PO BID gabapentin 800 mg tablet See Rx Instructions .ROUTE .COMPLEX Rx Instructions: Take one capsule three times daily, may take 1/2-1 additional at night for pain, as needed. glipizide 2.5 mg tablet extended release 24hr 2.5 mg PO DAILY lovastatin 20 mg tablet 20 mg PO DAILY potassium chloride 10 mEq capsule, extended release 20 meq PO BID vitamin B complex Tablet 1 tab PO DAILY omega 1-kgk-zsk-fish oil [Fish Oil] 300-1,000 mg Capsule 1 cap PO DAILY Held Eliquis 5 mg tablet 5 mg PO BID Hold Instructions: Resume on 01/17/25. hold until follow up with PCP/cardiology Discontinued meloxicam 15 mg tablet 15 mg PO DAILY Discharge Orders: Discharge Order (Routine); Ordered 01/02/25 Ordered By: Marianne Dillon Referrals: [facility] [Outside] - 1 week Referral Note: on Eliquis for A fib, admitted here for GI bleed. Please reassess timing of Eliquis renewal We have notified your physician's clinic of the need for a follow-up appointment to be scheduled. If you have not heard from them within the next 2 business days, please call them directly. Darcie Shanks MD [Referring, Family Practice] - 1 week Referral Note: Please contact primary care provider Friday morning to schedule a hospital follow up appointment within 1 week of discharge. Thank you! Discharge Diet: Usual diet Discharge Activity: Resume usual activity Patient Instructions: Sucralfate (By mouth), Levofloxacin (By mouth) (Levaquin, Levaquin Leva-april), Pantoprazole (By mouth), Gastrointestinal Bleeding (GEN), Opioid Safety Activity Restrictions/Additional Instructions: Please check your BP before taking entresto. Skip dose if top blood pressure number is less than 95 mmhg. Discharge Attestations Time Spent in Discharge Care*: greater than 30 min Quality Metrics Clinical Quality Measures [ No reported AMI, CVA or VTE this stay] Coding Level of Care Code Acute Code for Chg Fwd Diagnoses Melena K92.1
== END 2025-01-02 15:51 | disposition home or self-care (01) | DRG 378 ==
LOC: ER 14:01 → MEDSURG 16:00
PROVIDERS: Student in an Organized Health Care Education/Training Program; Admitting Provider Student in an Organized Health Care Education/Training Program; Emergency Provider Student in an Organized Health Care Education/Training Program; PCP Family Medicine; Visit Provider Student in an Organized Health Care Education/Training Program
PROC: 0DJ08ZZ Inspection of Upper Intestinal Tract, Via Natural or Artificial Opening Endoscopic (ICD-10-PCS; principal; 2024-12-31 09:00)
PROC: 0DJD8ZZ Inspection of Lower Intestinal Tract, Via Natural or Artificial Opening Endoscopic (ICD-10-PCS; CPT 45378; 2024-12-31 09:00)
DX: K29.71 Gastritis, unspecified, with bleeding (principal); N17.9 Acute kidney failure, unspecified; I48.91 Unspecified atrial fibrillation; D50.0 Iron deficiency anemia secondary to blood loss (chronic); I11.0 Hypertensive heart disease with heart failure; I50.9 Heart failure, unspecified; E11.9 Type 2 diabetes mellitus without complications; K57.31 Diverticulosis of large intestine without perforation or abscess with bleeding; E78.5 Hyperlipidemia, unspecified; G25.81 Restless legs syndrome; Z79.01 Long term (current) use of anticoagulants; Z79.82 Long term (current) use of aspirin; Z79.84 Long term (current) use of oral hypoglycemic drugs
CPT/HCPCS: 36415; 36430; 43235; 45378; 71045; 73030; 73502; 74176; 80053; 81001; 84484; 85014; 85018; 85025; 86850; 86900; 86920; 87077; 87086; 87186; 93005; 96374; 99285; J2371; J2470; J2704; J7030; J9999; P9016